=== PATIENT | male | born 1965 | race Two or more races ===

== ENCOUNTER 2023-04-26 10:16 | Emergency (ER) | payer OTHER ==
[~2023-04-26] VITALS: Ht 177.8 cm; Wt 80.0 kg
[2023-04-26] MEDS ORDERED: LORazepam 2MG/ML-1ML VIAL IV ONE (11:00)
[2023-04-26] MEDS ORDERED: ACETAMINOPHEN 325 MG TAB PO ONE ×2 (11:00)
[2023-04-26] MEDS ORDERED: IPRATROPIUM BROM 0.5 MG/2.5ML INH SOL HHN ONE (11:00)
[2023-04-26] MEDS ORDERED: ALBUTEROL SULF 2.5 MG/0.5ML(0.5%) NEB SOLN HHN ONE (11:00)
[2023-04-26] MEDS ORDERED: ASPirin 81 mg TAB PO ONE (11:00)
[2023-04-26] MEDS ORDERED: SODIUM CHLORIDE 0.9% 1,000 ML IVB ONE (11:00)
[2023-04-26] MEDS ORDERED: ONDANSETRON HCL 4 MG/2 ML VIAL IV ONE (11:00)
[2023-04-26] MEDS ORDERED: methylPREDNISolone SOD SUCC 125 MG in SODIUM CHL 0.9% 100 ML IV ONE (11:00)
[2023-04-26 11:21] LABS: Basophils # (auto) 0 10 ^3/uL (0-0.2); Basophils % (auto) 0.5 % (0.0-2.0); Eosinophils # (auto) 0 10 ^3/uL (0-0.8); Eosinophils % (auto) 0.3 % (0.0-7.0); Hematocrit 47.8 % (41.0-53.0); Hemoglobin 15.8 g/dL (13.5-17.5); Lymphocytes # (auto) 1.4 10 ^3/uL (0.4-5.4); Lymphocytes % (auto) 14.6 % (10.0-50.0); Mean Corpuscular Hemoglobin 31.7 pg (28.0-32.0); Monocytes # (auto) 0.6 10 ^3/uL (0-1.3); Monocytes % (auto) 6.2 % (0.0-12.0); Neutrophils # (auto) 7.5 10 ^3/uL (1.6-8.6); Neutrophils % (auto) 78.4 % (37.0-80.0); Nucleated Red Blood Cells % 0.1 %; Red Blood Cells 4.98 10^6/uL (4.5-5.90); Red Cell Distribution Width 14.6 % (11.8-14.3); White Blood Cell 9.6 10^3/uL (4.4-10.8)
[2023-04-26 11:29] LABS: INR 1.09 (0.9-1.15); Prothrombin Time 11.4 sec (9.3-11.8)
[2023-04-26 11:35] LABS: Alanine Aminotransferase 81 U/L (7-40); Albumin 4.3 g/dL (3.2-4.8); Alkaline Phosphatase 75 U/L (46-116); Aspartate Aminotransferase 67 U/L (13-40); BUN/Creatinine Ratio 14.5 (10.0-20.0); Bilirubin, Total 1.6 mg/dL (0.2-1.0); Blood Urea Nitrogen 20 mg/dL (9-23); Calcium 9.7 mg/dL (8.5-10.1); Chloride 104 mmol/L (98-107); Glucose 131 mg/dL (74-106); Magnesium 1.6 mg/dL (1.6-2.6); Potassium 3.3 mmol/L (3.5-5.1); Sodium 138 mmol/L (136-145); Total Protein 8.1 g/dL (5.7-8.2)
[2023-04-26 11:50] VITALS: PULSE 107; RESP 17; TEMP 98.4; O2SAT 99
[2023-04-26] MEDS ORDERED: POTASSIUM CHL 20 Meq TABLET PO ONE (15:00)
[2023-04-26 15:24] VITALS: BP 154/87; PULSE 87; RESP 17; O2SAT 96
== END 2023-04-26 15:30 | disposition home or self-care (01) ==
LOC: ER 10:16 → EDBD 10:16 → ER 15:23
DX: R06.00 Dyspnea, unspecified (principal); R45.1 Restlessness and agitation; R41.82 Altered mental status, unspecified; I10 Essential (primary) hypertension; E11.9 Type 2 diabetes mellitus without complications; Z79.01 Long term (current) use of anticoagulants; Z79.899 Other long term (current) drug therapy
CPT/HCPCS: 36415; 36600; 71045; 80053; 80320; 82805; 83605; 83735; 83880; 84443; 84484; 85025; 85610; 85730; 93005; 94640; 96365; 96375; 99285; J2060; J2405; J2930; J7644

== ENCOUNTER 2024-06-01 10:40 | Inpatient (IN) | payer OTHER ==
[~2024-06-01] VITALS: Ht 172.7 cm; Wt 95.5 kg
[2024-06-01 11:25] LABS: Basophils # (auto) 0.1 10 ^3/uL (0-0.2); Basophils % (auto) 0.9 % (0.0-2.0); Eosinophils # (auto) 0.2 10 ^3/uL (0-0.8); Eosinophils % (auto) 1.6 % (0.0-7.0); Hematocrit 49.4 % (41.0-53.0); Lymphocytes # (auto) 2.7 10 ^3/uL (0.4-5.4); Lymphocytes % (auto) 26.8 % (10.0-50.0); Mean Corpuscular Hemoglobin 32.5 pg (28.0-32.0); Mean Corpuscular Hgb Conc. 34.4 g/dL (32.0-36.0); Mean Corpuscular Volume 94.6 fL (80.0-100.0); Monocytes # (auto) 0.8 10 ^3/uL (0-1.3); Monocytes % (auto) 7.5 % (0.0-12.0); Neutrophils # (auto) 6.3 10 ^3/uL (1.6-8.6); Neutrophils % (auto) 63.2 % (37.0-80.0); Nucleated Red Blood Cells % 0.2 %; Platelet Count (auto) 237 10^3/uL (140-450); Red Blood Cells 5.22 10^6/uL (4.5-5.90); Red Cell Distribution Width 14.7 % (11.8-14.3)
[2024-06-01 11:38] LABS: Anion Gap 8 (5-15); Carbon Dioxide 25 mmol/L (20-31); Chloride 106 mmol/L (98-107); Potassium 3.6 mmol/L (3.5-5.1); Sodium 139 mmol/L (136-145)
[2024-06-01 11:39] LABS: Calcium 9.7 mg/dL (8.7-10.4)
[2024-06-01 11:43] LABS: Glucose 106 mg/dL (74-106)
[2024-06-01] MEDS: SODIUM CHLORIDE 0.9% 1,000 ML IV ONE (11:43)
[2024-06-01 11:44] LABS: BUN/Creatinine Ratio 15.9 (10.0-20.0); Blood Urea Nitrogen 29 mg/dL (9-23)
[2024-06-01 11:50] VITALS: PULSE 101; RESP 16; O2SAT 94
[2024-06-01] MEDS ORDERED: HYDROcodone-ACET 5/325MG TAB PO PRN (13:30)
[2024-06-01] MEDS ORDERED: DEXTROSE (50%) 50ML SYRG IV PRN (13:30)
[2024-06-01] MEDS ORDERED: MORPHINE SULFATE INJ 2 MG/ml SYRG IV PRN (13:30)
[2024-06-01] MEDS ORDERED: ACETAMINOPHEN 325 MG TAB PO PRN (13:30)
[2024-06-01] MEDS ORDERED: NITROGLYCERIN 0.4 MG SL TAB SL PRN (13:30)
[2024-06-01] MEDS ORDERED: DOCUSATE SOD 100 MG CAP PO PRN (13:30)
[2024-06-01] MEDS ORDERED: ONDANSETRON HCL 4 MG/2 ML VIAL IV PRN (13:30)
[2024-06-01] MEDS: SODIUM CHLORIDE 0.9% 1,000 ML IV SCH (15:12)
[2024-06-01] MEDS: InsuLIN REG 1unit/0.01ml Soln (100units/ml) SC SCH ×2 (17:00→22:00)
[2024-06-01] MEDS: ACCU-CHEK COMFORT CURVE STRIP VI SCH (17:07)
[2024-06-01 18:00] VITALS: BP 164/110; PULSE 80; RESP 16; O2SAT 95
[2024-06-01] MEDS ORDERED: ATOR40TA52 PO (19:53)
[2024-06-01] MEDS ORDERED: INSU100S6 SC (19:53)
[2024-06-01] MEDS ORDERED: METF-370 PO (19:53)
[2024-06-01] MEDS ORDERED: INSU100I28 IJ (19:53)
[2024-06-01] MEDS ORDERED: LOSA-534 PO (19:53)
[2024-06-01 20:00] VITALS: RESP 18; O2SAT 96
[2024-06-01 21:00] VITALS: BP 153/99; PULSE 97; RESP 21; TEMP 98.7; O2SAT 100
[2024-06-01] MEDS: INSULIN LANTUS (GLARGINE) 1 /0.01ml (100units/ml) SC SCH (22:05)
[2024-06-02 01:00] VITALS: BP 139/89; PULSE 82; RESP 20; TEMP 98.9; O2SAT 97
[2024-06-02 05:00] VITALS: BP 138/92; PULSE 81; RESP 19; TEMP 97.9; O2SAT 100
[2024-06-02 08:10] VITALS: RESP 18; O2SAT 96
[2024-06-02 09:00] VITALS: BP 147/99; PULSE 63; RESP 18; TEMP 98; O2SAT 98
[2024-06-02 12:53] LABS: Urine Bacteria None Seen /hpf (None Seen)
[2024-06-02 13:00] VITALS: BP 140/92; PULSE 62; RESP 18; TEMP 97.6; O2SAT 92
[2024-06-02 13:18] LABS: Urine Blood Negative /uL (Negative); Urine Clarity Clear (Clear); Urine Color Yellow (Yellow); Urine Protein, UAD 2+ (Negative); Urine Specific Gravity 1.022 (1.001-1.035); Urine Urobilinogen Normal (Negative); Urine WBC 1 /hpf (0 - 3); Urine pH 5.5 (5.0-9.0)
== END 2024-06-02 18:25 | disposition home or self-care (01) | DRG 422 ==
LOC: ER 10:40 → OVERFLOW 13:20 → CENTRAL 17:45
PROVIDERS: ADMIT Nurse Practitioner; ATTEND Nurse Practitioner
DX: E86.0 Dehydration (principal); N17.0 Acute kidney failure with tubular necrosis; I50.9 Heart failure, unspecified; I11.0 Hypertensive heart disease with heart failure; E11.65 Type 2 diabetes mellitus with hyperglycemia; E66.9 Obesity, unspecified; E78.5 Hyperlipidemia, unspecified; F32.A Depression, unspecified; Z86.73 Personal history of transient ischemic attack (TIA), and cerebral infarction without residual deficits; Z68.32 Body mass index [BMI] 32.0-32.9, adult; Z79.4 Long term (current) use of insulin
CPT/HCPCS: 36415; 74176; 80048; 81001; 82010; 82962; 83036; 85025; 87340; 93005; 96360; G0378; J1815

== ENCOUNTER 2024-09-24 12:26 | Emergency (ER) | payer OTHER ==
[~2024-09-24] VITALS: Ht 172.7 cm; Wt 109.0 kg
[~2024-09-24 12:26] MED LIST: ATOR40TA52 PO; INSU100I28 IJ; INSU100S6 SC; LOSA-534 PO; METF-370 PO
--- NOTE | 2024-09-24 13:40 | ED.PDOC ---
Gutierrez. trauma (HPI) HPI Comments A 59 YEAR OLD MALE PRESENTS TO THE ED WITH COMPLAINT OF UPPER CHEST WALL PAIN, RIGHT KNEE PAIN, AND SORE THROAT STATUS POST FALL. PATIENT STATES HE HAS A HISTORY OF A CVA IN THE PAST AND NOTES THAT THIS SOMETIMES CAUSES HIM TO BE OFF BALANCE, AND NOTES WHILE HE WAS WALKING TODAY HE LOST BALANCE AND ACCIDENTALLY FELL FORWARD ON ROCKS. PATIENT REPORTS HE HIT HIS THROAT REGION, RIGHT KNEE, AND UPPER CHEST ON THE GROUND. PATIENT STATES HE IS NOW EXPERIENCING RIGHT KNEE PAIN, AND UPPER CHEST WALL PAIN, AND STATES HE INITIALLY HAD A SORE THROAT, BUT DOES NOT AT THIS TIME. PATIENT DENIES HEAD INJURY, LOC, FEVER, CHILLS, SHORTNESS OF BREATH, ABDOMINAL PAIN, NAUSEA, VOMITING, HEADACHE, OR OTHER COMPLAINTS. NO OTHER SYMPTOMS OR MODIFYING FACTORS AT THIS TIME. PATIENT IS ALERT, ORIENTED X 4, AND HAS STEADY GAIT. Chief Complaint: Fall Injury Time Seen by MD: 12:31 Reviewed notes: Nurses Notes, Medications, Allergies Allergies: Coded Allergies: NO KNOWN ALLERGIES (Unverified , 04/26/23) Home Meds Active Scripts Cephalexin Monohydrate (Cephalexin) 500 Mg Cap, 1 CAP PO QID, #40 CAP Prov:VANCE KAMINSKI 09/24/24 Reported Medications Insulin Glargine (Insulin Glargine) 100 Unit/Ml Alee, 22 UNIT SC DAILY, ML 06/01/24 Insulin Aspart (Novolog) 100 Unit/Ml Inj, 100 UNIT IJ, INJ 06/01/24 Losartan Potassium (Losartan Potassium) 50 Mg Tab, 50 MG PO DAILY for 30 Days, MG 06/01/24 Atorvastatin Calcium (ATORVASTATIN CALCIUM) 40 Mg Tab, 1 TAB PO DAILY, #30 TAB 5 Refills 06/01/24 Metformin Hydrochloride (Metformin Hcl) 500 Mg Tab, 500 MG PO IBID for 30 Days, MG 06/01/24 Information Source: Patient Mode of Arrival: Ambulatory Severity: Moderate Timing: Hours Duration: Since onset, Hours Prehospital treatment: None Location: Chest, (R) Knee, Neck Location of laceration: None Mechanism: Fall Associated signs and symtoms: None Past Medical History PAST MEDICAL HISTORY: CHF, CVA, DM, High Lipids, HTN Past Medical History (Other): BPH, UMBILICAL HERNIA Surgical History: Tonsillectomy Family History Family History: Reviewed,noncontributory to illness, Family hx of heart reji Social History Smoker: Non-Smoker Alcohol: Denies ETOH Use Drugs: Denies Drug Use Lives In: Home Constitutional: denies: chills, diaphoresis, fatigue, fever, malaise, sweats, weakness, others EENTM: reports: throat pain; denies: blurred vision, double vision, ear bleeding, ear discharge, ear drainage, ear pain, ear ringing, eye pain, eye redness, hearing loss, mouth pain, mouth swelling, nasal discharge, nose bleeding, nose congestion, nose pain, photophobia, tearing, throat swelling, voice changes, others Respiratory: denies: cough, hemoptysis, orthopnea, SOB at rest, shortness of breath, SOB with excertion, stridor, wheezing, others Cardiovascular: denies: chest pain, dizzy spells, diaphoresis, Dyspnea on exertion, edema, irregular heart beat, left arm pain, lightheadedness, palpitations, PND, syncope, others Gastrointestinal: denies: abdomen distended, abdominal pain, blood streaked bowels, constipated, diarrhea, dysphagia, difficulty swallowing, hematemesis, melena, nausea, poor appetite, poor fluid intake, rectal bleeding, rectal pain, vomiting, others Genitourinary: denies: burning, dysuria, flank pain, frequency, hematuria, incontinence, penile discharge, penile sore, pain, testicle pain, testicle swelling, urgency, others Neurological: denies: dizziness, fainting, headache, left sided numbness, left sided weakness, numbness, paresthesia, pre-existing deficit, right sided numbness, right sided weakness, seizure, speech problems, tingling, tremors, weakness, others Musculoskeletal: reports: joint pain, joint swelling, others (UPPER CHEST WALL PAIN, RIGHT KNEE PAIN); denies: back pain, gout, muscle pain, muscle stiffness, neck pain Integumetry: reports: rash (ABRASION ON CHEST WALL. ); denies: bruises, change in color, change in hair/nails, dryness, laceration, lesions, lumps, wounds, others Allergic/Immunocompromised: denies: Difficulty Healing, Frequent Infections, Hives, Itching, others Hematologic/Lymphatic: denies: anemia, blood clots, easy bleeding, easy bruising, swollen glands, others Endocrine: denies: excessive hunger, excessive sweating, excessive thirst, excessive urination, flushing, intolerance to cold, intolerance to heat, unexpl ained weight gain, unexplained weight loss, others Psychiatric: denies: anxiety, bipolar disorder, depression, hopeless, panic disorder, schizophrenia, sleepless, suicidal, others All Other Systems: Reviewed and Negative Physical Exam General Appearance: Obese HEENT: Normal ENT Inspection, PERRL/EOMI, Pharynx Normal, TMs Normal Neck: Full Range of Motion, Non-Tender, Normal, Normal Inspection, Other (NO ANTERIOR NECK WALL CONTUSION AND OPEN WOUND. ) Respiratory: Lungs Clear, No Accessory Muscle Use, No Respiratory Distress, Normal Breath Sounds, Other (TENDERNESS WITH ABRASION ON CHEST WALL, NO BONY TENDERNESS, SWELLING AND DEFORMITY. ) Cardiovascular: No Edema, No JVD, No Murmur, No Gallop, Normal Peripheral Pulses, Regular Rate/Rhythm Breast Exam: Deferred Gastrointestinal: No Organomegaly, Non Tender, No Pulsatile Mass, Normal Bowel Sounds, Soft Genitalia: Deferred Pelvic: Deferred Rectal: Deferred Extremities: Decreased range of motion (SLIGHTLY. ), No calf tenderness, Normal capillary refill, No pedal edema, Tender (AND MILD SWELLING ON RIGHT KNEE, MILD EFFUSION, NO BONY TENDERNESS AND DEFORMITY. ) Musculoskeletal : Apperance: Normal Neurologic: Alert, acid tank cleaner II-XII nml as Tested, No Motor Deficits, Normal Affect, Normal Mood, No Sensory Deficits Cerebellar Function: Normal Reflexes: Normal Skin: Dry, Rash (ABRASION WOUNDS ON ANTERIOR CHEST WALL, NO BLEEDING AND FB. ), Warm Peripheral Pulses: 2+ carotid (R), 2+ carotid (L), 2+ dorsalis pedis (R), 2+ dorsalis pedis (L) Lymphatic: No Adenopathy Was a procedure done? Was a procedure done?: No Differential Diagnosis Multiple Trauma: Fractures, Abrasions, Contusion, Other (SPRAIN) Neck Injury: Cervical Muscle Spasm, N/A X-Ray, Labs, Meds, VS Vital Signs Date Time Temp Pulse Resp B/P (MAP) Pulse Ox O2 Delivery O2 Flow Rate FiO2 09/24/24 14:04 107 20 97 Room Air 09/24/24 14:04 99.9 107 20 151/81 (104) 97 99.9 09/24/24 13:18 99.9 107 20 151/81 (104) 97 CLINICAL INDICATION: Trauma TECHNIQUE: 3 radiographic views of the right knee were obtained. Comparison: None FINDINGS/IMPRESSION: There is no evidence of acute fracture or dislocation. Severe tricompartmental knee joint osteoarthrosis. ATED BY: RBY COLBERT MD DICTATED DATE/TIME: 09/24/241411 SIGNED BY: BRY COLBERT MD SIGNED DATE/TIME: 09/24/241411 CC: EXAM: XY CHEST TWO VIEWS ROUTINE CLINICAL HISTORY: Trauma COMPARISON: None TECHNIQUE: Frontal and lateral view of the chest was obtained FINDINGS: Lines and Tubes: None Lungs: No focal consolidation. Pleura: No effusion. No pneumothorax. Cardiomediastinal contours: Unremarkable Bones: No acute osseous abnormality. IMPRESSION: No acute cardiopulmonary disease. ATED BY: BRY COLBERT MD DICTATED DATE/TIME: 09/24/241411 SIGNED BY: BRY COLBERT MD SIGNED DATE/TIME: 09/24/241411 CC: X-Ray, Labs, Meds, VS Comment EXTERNAL MEDICAL RECORDS REVIEWED: [NONE] INDEPENDENT HISTORIANS: [NONE] SOCIAL DETERMINANTS OF HEALTH: [NONE] LABS ORDERED: NONE REVIEWED AND INTERPRETED RESULTS: NONE IMAGING ORDERED: XR CHEST, XR KNEE RT TREATMENTS ORDERED: PROCEDURES PERFORMED: NONE CRITICAL CARE TIME: NONE I HAVE DISCUSSED THE PATIENT WITH THE ATTENDING PHYSICIAN DR. NOEL AND HE AGREES WITH THE PATIENT'S PLAN OF CARE AND DISPOSITION. BASED ON HISTORY OF PRESENT ILLNESS, AND PHYSICAL EXAM, PATIENT WILL BE DISCHARGED HOME. SHARED DECISION MAKING: PATIENT INSTRUCTED TO FOLLOW UP WITH PRIMARY CARE PROVIDER IN 1-2 DAYS FOR RE-EVALUATION OF SYMPTOMS. PATIENT VERBALIZES UNDERST ANDING TO RETURN TO ED FOR NEW OR WORSENING SYMPTOMS OR IF FOLLOW UP WITH PCP CANNOT BE OBTAINED. PATIENT FEELS COMFORTABLE GOING HOME AT THIS TIME. ALL QUESTIONS ADDRESSED AT TIME OF DISCHARGE. Images Reviewed?: Images reviewed and evaluated by me Time of 1ST Reevaluation: 15:00 Reevaluation 1ST: Improved Patient Education/Counseling: Diagnosis, Treatment, Need For Follow Up Family Education/Counseling: Diagnosis, Treatment, Need For Follow Up Medical Screening: No EMC Exist At This Time Departure 1 Departure Time of Disposition: 15:00 Impression: Primary Impression: Abrasion of chest wall Qualified Codes: S20.319A - Abrasion of unspecified front wall of thorax, initial encounter Additional Impressions: Abrasion of right knee Qualified Codes: S80.211A - Abrasion, right knee, initial encounter Status post fall Degenerative joint disease of right knee Qualified Codes: M17.11 - Unilateral primary osteoarthritis, right knee Disposition: HOME / SELF CARE / HOMELESS Condition: Stable Additional Instructions: FOLLOW-UP WITH PCP IN 1 TO 2 DAYS. TAKE MEDICATIONS PRESCRIBED. RETURN TO ED FOR ANY NEW OR WORSENING SYMPTOMS. e-Prescriptions Cephalexin Monohydrate (Cephalexin) 500 Mg Cap 1 CAP PO QID, #40 CAP Prov: VANCE KAMINSKI 09/24/24 Discharged With: Self, Relative Critical Care Note Critical Care Time?: No Stability Stability form required: No I personally scribed for VANCE KAMINSKI ([email or web address]) on 09/24/24 at 13:40. Electronically submitted by Clinton Gracia ([email or web address]). I personally scribed for VANCE KAMINSKI ([email or web address]) on 09/24/24 at 14:12. Electronically submitted by Clinton Gracia ([employer]). I personally scribed for VANCE KAMINSKI ([email or web address]) on 09/24/24 at 14:14. Electronically submitted by Clinton Gracia ([employer]). I personally scribed for VANCE KAMINSKI ([email or web address]) on 09/24/24 at 14:15. Electronically submitted by Clinton Gracia ([employer]). VANCE KAMINSKI Sep 24, 2024 13:40
[2024-09-24 14:04] VITALS: BP 151/81; PULSE 107; RESP 20; TEMP 99.9; O2SAT 97
--- NOTE | 2024-09-24 14:12 | DVH ---
CLINICAL INDICATION: Trauma TECHNIQUE: 3 radiographic views of the right knee were obtained. Comparison: None FINDINGS/IMPRESSION: There is no evidence of acute fracture or dislocation. Severe tricompartmental knee joint osteoarthrosis.
--- NOTE | 2024-09-24 14:13 | DVH ---
EXAM: XY CHEST TWO VIEWS ROUTINE CLINICAL HISTORY: Trauma COMPARISON: None TECHNIQUE: Frontal and lateral view of the chest was obtained FINDINGS: Lines and Tubes: None Lungs: No focal consolidation. Pleura: No effusion. No pneumothorax. Cardiomediastinal contours: Unremarkable Bones: No acute osseous abnormality. IMPRESSION: No acute cardiopulmonary disease.
[2024-09-24] MEDS ORDERED: CEPH500C PO (14:30)
== END 2024-09-24 14:43 | disposition home or self-care (01) ==
LOC: ER 12:26
DX: S20.319A Abrasion of unspecified front wall of thorax, initial encounter (principal); S80.211A Abrasion, right knee, initial encounter; M17.11 Unilateral primary osteoarthritis, right knee; I11.0 Hypertensive heart disease with heart failure; I50.9 Heart failure, unspecified; E11.9 Type 2 diabetes mellitus without complications; E78.5 Hyperlipidemia, unspecified; Z86.73 Personal history of transient ischemic attack (TIA), and cerebral infarction without residual deficits; Z90.89 Acquired absence of other organs; Z79.4 Long term (current) use of insulin; Z79.899 Other long term (current) drug therapy; W18.39XA Other fall on same level, initial encounter; Y93.89 Activity, other specified; Y92.89 Other specified places as the place of occurrence of the external cause; Y99.8 Other external cause status
CPT/HCPCS: 71046; 73562

== ENCOUNTER 2025-04-19 17:24 | Inpatient (IN) | payer OTHER ==
[~2025-04-19] VITALS: Ht 172.7 cm; Wt 94.4 kg
[2025-04-19] MEDS: SODIUM CHLORIDE 0.9% 1,000 ML IV SCH (03:00)
[~2025-04-19 17:24] MED LIST changes: +ASPI-325 PO; +ATOR20TA50 PO; +CEPH500C PO; +CLOP75TA70 PO; +FURO20TA4 PO; +INSU1INJ19 SC; +TAMS0.4C39 PO
[2025-04-19] MEDS ORDERED: MORPHINE SULFATE 4 MG/ML SYR/VIAL IV ONE (17:45)
[2025-04-19] MEDS ORDERED: ONDANSETRON HCL 4 MG/2 ML VIAL IV ONE (17:45)
--- NOTE | 2025-04-19 17:52 | ED.PDOC ---
History of Present Illness HPI Comments 60-year-old male who comes in with chief complaint of abdominal pain. The patient is also having some nausea. The patient states that the symptoms started approximately two days ago. He states that he is currently on Ozempic for the past two months and recently has a dose increased. The pain is in the epigastric region and nonradiating. The patient denies any fever or dysuria. The patient does has a history of diabetes. Time Seen by MD: 17:29 Reviewed Notes: Nurses Notes, Mechanical Assembly Technician Notes, Medications, Allergies (No allergies to medications) Allergies: Coded Allergies: NO KNOWN ALLERGIES (Unverified , 04/26/23) Home Meds Active Scripts Cephalexin Monohydrate (Cephalexin) 500 Mg Cap, 1 CAP PO QID, #40 CAP Prov:VANCE KAMINSKI 09/24/24 Reported Medications Insulin Glargine (Insulin Glargine) 100 Unit/Ml Alee, 22 UNIT SC DAILY, ML 06/01/24 Insulin Aspart (Novolog) 100 Unit/Ml Inj, 100 UNIT IJ, INJ 06/01/24 Losartan Potassium (Losartan Potassium) 50 Mg Tab, 50 MG PO DAILY for 30 Days, MG 06/01/24 Atorvastatin Calcium (ATORVASTATIN CALCIUM) 40 Mg Tab, 1 TAB PO DAILY, #30 TAB 5 Refills 06/01/24 Metformin Hydrochloride (Metformin Hcl) 500 Mg Tab, 500 MG PO IBID for 30 Days, MG 06/01/24 Information Source: Patient, Emergency Med Personnel Mode of Arrival: EMS Severity: Moderate Timing: Days Duration: Since onset Prehospital treatment: Vibrating Screen Operator, IVF Location: Epigastric pain Past Medical History PAST MEDICAL HISTORY: CHF, CVA, DM, High Lipids, HTN Surgical History: Tonsillectomy Family History Family History: Family hx of heart reji Social History Smoker: Non-Smoker Alcohol: Denies ETOH Use Drugs: Denies Drug Use Lives In: Home Constitutional: denies: chills, diaphoresis, fatigue, fever, malaise, sweats, weakness, others EENTM: denies: blurred vision, double vision, ear bleeding, ear discharge, ear drainage, ear pain, ear ringing, eye pain, eye redness, hearing loss, mouth pain, mouth swelling, nasal discharge, nose bleeding, nose congestion, nose pain, photophobia, tearing, throat pain, throat swelling, voice changes, others Respiratory: denies: cough, hemoptysis, orthopnea, SOB at rest, shortness of breath, SOB with excertion, stridor, wheezing, others Cardiovascular: denies: chest pain, dizzy spells, diaphoresis, Dyspnea on exertion, edema, irregular heart beat, left arm pain, lightheadedness, palpitations, PND, syncope, others Gastrointestinal: reports: abdominal pain, nausea; denies: abdomen distended, blood streaked bowels, constipated, diarrhea, dysphagia, difficulty swallowing, hematemesis, melena, poor appetite, poor fluid intake, rectal bleeding, rectal pain, vomiting, others Genitourinary: denies: burning, dysuria, flank pain, frequency, hematuria, incontinence, penile discharge, penile sore, pain, testicle pain, testicle swelling, urgency, others Neurological: denies: dizziness, fainting, headache, left sided numbness, left sided weakness, numbness, paresthesia, pre-existing deficit, right sided numbness, right sided weakness, seizure, speech problems, tingling, tremors, weakness, others Musculoskeletal: denies: back pain, gout, joint pain, joint swelling, muscle p ain, muscle stiffness, neck pain, others Integumetry: denies: bruises, change in color, change in hair/nails, dryness, laceration, lesions, lumps, rash, wounds, others Allergic/Immunocompromised: denies: Difficulty Healing, Frequent Infections, Hives, Itching, others Hematologic/Lymphatic: denies: anemia, blood clots, easy bleeding, easy bruising, swollen glands, others Endocrine: denies: excessive hunger, excessive sweating, excessive thirst, excessive urination, flushing, intolerance to cold, intolerance to heat, unexplained weight gain, unexplained weight loss, others Psychiatric: denies: anxiety, bipolar disorder, depression, hopeless, panic disorder, schizophrenia, sleepless, suicidal, others Physical Exam General Appearance: Moderate Distress HEENT: Normal ENT Inspection, Pharynx Normal, TMs Normal Neck: Full Range of Motion, Non-Tender, Normal, Normal Inspection Respiratory: Chest Non-Tender, Lungs Clear, No Accessory Muscle Use, No Respiratory Distress, Normal Breath Sounds Cardiovascular: No Edema, No JVD, No Murmur, No Gallop, Normal Peripheral Pulses, Regular Rate/Rhythm Breast Exam: Deferred Gastrointestinal: Epigastric, No Organomegaly, No Pulsatile Mass, Normal Bowel Sounds, Soft, Tenderness Genitalia: Deferred Pelvic: Deferred Rectal: Deferred Extremities: No calf tenderness, Normal capillary refill, Normal inspection, Normal range of motion, Non-tender, No pedal edema Musculoskeletal : Apperance: Normal Neurologic: Alert, software performance engineer II-XII nml as Tested, No Motor Deficits, Normal Affect, Normal Mood, No Sensory Deficits Cerebellar Function: Normal Reflexes: Normal Skin: Dry, Normal Color, Warm Lymphatic: No Adenopathy Was a procedure done? Was a procedure done?: No EKG EKG : Pulse Rate (adult): 102 [place]: Normal Cardiac Rhythm: ST Block: None ST: Nonsp Differential Dx Considerations may include: Generalized weakness, electrolyte imbalance, nausea, vomiting, cholecystitis, appendicitis X-Ray, Labs, Meds, VS Vital Signs Date Time Temp Pulse Resp B/P (MAP) Pulse Ox O2 Delivery O2 Flow Rate FiO2 04/19/25 19:53 108 12 92 Room Air* 0 21 04/19/25 19:51 97.4 108 18 101/67 (78) 92 97.4 04/19/25 17:52 102 04/19/25 17:35 97.6 100 18 125/86 97 97.6 Lab Test 04/19/25 18:07 Range/Units White Blood Count 9.6 4.4-10.8 10^3/uL Red Blood Count 4.97 4.5-5.90 10^6/uL Hemoglobin 15.6 13.5-17.5 g/dL Hematocrit 45.4 41.0-53.0 % Mean Corpuscular Volume 91.4 80.0-100.0 fL Mean Corpuscular Hemoglobin 31.5 28.0-32.0 pg Mean Corpuscular Hemoglobin Concent 34.4 32.0-36.0 g/dL Red Cell Distribution Width 14.0 11.8-14.3 % Platelet Count 202 140-450 10^3/uL Mean Platelet Volume 9.2 6.9-10.8 fL Neutrophils (%) (Auto) 61.7 37.0-80.0 % Lymphocytes (%) (Auto) 29.0 10.0-50.0 % Monocytes (%) (Auto) 7.4 0.0-12.0 % Eosinophils (%) (Auto) 1.4 0.0-7.0 % Basophils (%) (Auto) 0.5 0.0-2.0 % Neutrophils # (Auto) 5.9 1.6-8.6 10 ^3/uL Lymphocytes # (Auto) 2.8 0.4-5.4 10 ^3/uL Monocytes # (Auto) 0.7 0-1.3 10 ^3/uL Eosinophils # (Auto) 0.1 0-0.8 10 ^3/uL Basophils # (Auto) 0.1 0-0.2 10 ^3/uL Nucleated Red Blood Cells 0.2 % Sodium Level 140 136-145 mmol/L Potassium Level 4.0 3.5-5.1 mmol/L Chloride Level 105 98-107 mmol/L Carbon Dioxide Level 23 20-31 mmol/L Anion Gap 12 5-15 Blood Urea Nitrogen 28 H 9-23 mg/dL Creatinine 3.88 H 0.700-1.30 mg/dL Glomerular Filtration Rate Calc 17 >90 mL/min BUN/Creatinine Ratio 7.2 L 10.0-20.0 Serum Glucose 101 74-106 mg/dL Calcium Level 8.9 8.7-10.4 mg/dL Lipase 69 H 12-53 U/L Current Medications Medications (Trade) Dose Ordered Sig/Stefan Route Start Time Stop Time Status Last Admin Sodium Chloride 500 ml @ 500 mls/hr Q1H ONCE IVB 04/19/25 17:45 04/19/25 18:44 DC 04/19/25 20:07 Pantoprazole Sodium (Protonix) 40 mg ONCE ONCE IV 04/19/25 17:45 04/19/25 17:46 DC 04/19/25 20:08 IV Hep-Lock was established The ultrasound of the pelvis shows: IMPRESSION: Hepatomegaly. The liver is diffusely echogenic which may be secondary to steatosis or another diffuse hepatic process. Correlate clinically and with liver function tests. The patient was given Protonix 40 mg IV push The patient was bolused with normal saline at 500 cc The BUN is 28 and a creatinine is 3.88 The patient's CBC is within normal limits. At this time, the patient is being admitted. There is a concern that the patient's lipase is somewhat elevated and this could be consistent with a possibility of pancreatitis Images Reviewed?: Images reviewed and evaluated by me Time of 1ST Reevaluation: 17:51 Reevaluation 1ST: Unchanged Patient Education/Counseling: Diagnosis, Treatment, Prognosis Family Education/Counseling: No Family Present SEPSIS Sepsis Screen Physician Orders Urinalysis (04/19/25 17:35) Heplock Iv (04/19/25 17:35) Vibrating Screen Operator (04/19/25 17:35) Blood Pressure (04/19/25 17:35) Pulse Oximetry (04/19/25 17:35) Abdomen Complete Sonogram (04/19/25 17:35) Vital Signs Date Time Temp Pulse Resp B/P (MAP) Pulse Ox O2 Delivery O2 Flow Rate FiO2 04/19/25 19:53 108 12 92 Room Air* 0 21 04/19/25 19:51 97.4 108 18 101/67 (78) 92 97.4 04/19/25 17:52 102 04/19/25 17:35 97.6 100 18 125/86 97 97.6 Laboratory Tests Test 04/19/25 18:07 White Blood Count 9.6 10^3/uL (4.4-10.8) Medications Medications Dose Ordered Sig/Stefan Route Start Time Stop Time Status Last Admin Dose Admin Pantoprazole Sodium 40 mg ONCE ONCE IV 04/19/25 17:45 04/19/25 17:46 DC 04/19/25 20:08 Sodium Chloride 500 ml @ 500 mls/hr Q1H ONCE IVB 04/19/25 17:45 04/19/25 18:44 DC 04/19/25 20:07 Departure 1 Departure Time of Disposition: 20:21 Impression: Primary Impression: Intractable abdominal pain Additional Impression: Acute pancreatitis Qualified Codes: K85.90 - Acute pancreatitis without necrosis or infection, unspecified Disposition: 09 ADMITTED INPATIENT Admit to: Med Surg Condition: Fair Critical Care Note Critical Care Time?: No Stability Stability form required: Yes Unstable for transfer: ED Physician Assesment (Clinical assesment) Heart Score Heart Score: Heart Score Response (Comments) Value History N/A 0 EKG N/A 0 Age N/A 0 Risk Factors N/A 0 Troponin N/A 0 Total 0 IRIS NOEL MD Apr 19, 2025 17:52
--- NOTE | 2025-04-19 18:26 | DVH ---
ULTRASOUND ABDOMEN: REASON FOR EXAM: pain TECHNIQUE: Real-time sector scans in the transverse and longitudinal planes were obtained through th e abdomen. FINDINGS: The liver is enlarged at 17.9 cm in length. The liver is diffusely echogenic. There is he patopetal flow in the portal vein. There is no intrahepatic biliary ductal dilatation. The common bi le duct measures 6 mm. No gallstones or sludge are identified. There is no gallbladder wall thicken ing nor pericholecystic fluid. There is no sonographic Nickerson's sign. The spleen is normal in size. The visualized portion of the pancreas is unremarkable. The pancreas is mostly obscured by bowel gas. The right kidney measures 12.2 cm. The left kidney measures 11.7 cm. There is no hydronephrosis or nephrolithiasis. There is no evidence of focal renal mass or cyst. The visualized portions of the abdominal aorta demonstrate no evidence of aneurysmal dilatation. The visualized inferior vena cava is unremarkable. There is no free intraperitoneal fluid. IMPRESSION: Hepatomegaly. The liver is diffusely echogenic which may be secondary to steatosis or another diffuse hepatic process. Correlate clinically and with liver function tests.
[2025-04-19 18:28] LABS: Hematocrit 45.4 % (41.0-53.0); Hemoglobin 15.6 g/dL (13.5-17.5); Mean Corpuscular Hemoglobin 31.5 pg (28.0-32.0); Mean Corpuscular Volume 91.4 fL (80.0-100.0); Nucleated Red Blood Cells % 0.2 %
[2025-04-19 18:34] LABS: Chloride 105 mmol/L (98-107); Potassium 4.0 mmol/L (3.5-5.1); Sodium 140 mmol/L (136-145)
[2025-04-19 18:35] LABS: Anion Gap 12 (5-15); Carbon Dioxide 23 mmol/L (20-31)
[2025-04-19 18:36] LABS: Calcium 8.9 mg/dL (8.7-10.4)
[2025-04-19 18:40] LABS: BUN/Creatinine Ratio 7.2 (10.0-20.0); Glucose 101 mg/dL (74-106)
[2025-04-19 18:44] LABS: Blood Urea Nitrogen 28 mg/dL (9-23); Lipase 69 U/L (12-53)
[2025-04-19 19:53] VITALS: PULSE 108; RESP 12; O2SAT 92
[2025-04-19] MEDS: SODIUM CHLORIDE 0.9% 500 ML IVB ONE (20:07)
[2025-04-19] MEDS: PANTOPRAZOLE 40 MG/10 ML VIAL INJ IV ONE (20:08)
[2025-04-19] MEDS ORDERED: NITROGLYCERIN 0.4 MG SL TAB SL PRN (22:00)
[2025-04-19] MEDS ORDERED: MORPHINE SULFATE INJ 2 MG/ml SYRG IV PRN (22:00)
[2025-04-20] VITALS (9 sets, daily range): BP systolic 116–142; BP diastolic 73–95; PULSE 66–91; RESP 16–19; TEMP 97.3–98.2; O2SAT 92–97
[2025-04-20 06:41] LABS: Hematocrit 41.5 % (41.0-53.0); Hemoglobin 14.4 g/dL (13.5-17.5); Mean Corpuscular Hemoglobin 31.8 pg (28.0-32.0); Mean Corpuscular Volume 91.8 fL (80.0-100.0); Nucleated Red Blood Cells % 0.1 %
[2025-04-20 06:56] LABS: Albumin 3.8 g/dL (3.2-4.8); Alkaline Phosphatase 63 U/L (46-116); Anion Gap 10 (5-15); BUN/Creatinine Ratio 7.8 (10.0-20.0); Bilirubin, Total 1.0 mg/dL (0.2-1.0); Carbon Dioxide 23 mmol/L (20-31); Chloride 106 mmol/L (98-107); Glucose 80 mg/dL (74-106); Potassium 3.8 mmol/L (3.5-5.1); Sodium 139 mmol/L (136-145); Total Protein 7.7 g/dL (5.7-8.2)
[2025-04-20 07:08] LABS: Urine Protein, UAD 1+ (Negative)
[2025-04-20 07:08] LABS: Alanine Aminotransferase 92 U/L (7-40); Blood Urea Nitrogen 28 mg/dL (9-23); Calcium 8.4 mg/dL (8.7-10.4); Lipase 58 U/L (12-53)
--- NOTE | 2025-04-20 12:27 | DVHPN2 ---
Progress Note - Dictate Date Seen: Apr 20, 2025 Medical Necessity Reason Pt with a Central, PICC or Fol: No vital signs Vital Sign Date Time Temp Pulse Resp B/P (MAP) Pulse Ox O2 Delivery O2 Flow Rate FiO2 04/20/25 08:58 97.6 91 18 139/85 (103) 97 97.6 04/20/25 08:00 Room Air* 0 21 Total Intake and Output 04/19/25 04/19/25 04/20/25 15:00 23:00 07:00 Intake Total 0 ml Balance 0 ml medications Current Medications Medications Dose Ordered Sig/Stefan Route Start Time Stop Time Status Last Admin Dose Admin Sodium Chloride 1,000 ml @ 120 mls/hr Q8H20M IV 04/19/25 22:00 04/19/25 03:00 Morphine Sulfate 2 mg Q4HPRN PRN IV 04/19/25 22:00 Nitroglycerin 0.4 mg Q5MINP PRN SL 04/19/25 22:00 Morphine Sulfate 2 mg Q30M PRN IV 04/19/25 22:00 laboratory and microbiology Laboratory Tests 04/20/25 05:47 Test 04/20/25 05:47 Range/Units Serum Glucose 80 74-106 mg/dL Problem List 1. Intractable nausea and vomiting Monitor, IV fluids, antiemetics 2. HLD Monitor, restart statin, PPI 3. Benign essential HTN Monitor, antihypertensives, PPI, DVT prophylaxis 4. Obesity Monitor, cardiac diet Assessment/Plan Subjective Patient is awake and alert. Objective Patient was admitted for abdominal pain and nausea related to Ozempic use. Patient was cleared for discharge today however he was complaining of left shoulder pain. Plan Obtain troponin levels. Monitor on twelve-lead EKG. Obtain 2 view x-ray of left shoulder. Cardiology consult if EKG is abnormal and continue antihypertensives and PRN pain medication for abdominal pain. Patient was instructed to discontinue Ozempic. Plan discussed with: Patient, Other JAMAR VIVAR NP Apr 20, 2025 12:27
--- NOTE | 2025-04-20 12:27 | DVHHP2 ---
Admitting Diagnosis: abdominal pain History of Present Illness 60-year-old male who comes in with chief complaint of abdominal pain. The patient is also having some nausea. The patient states that the symptoms s tarted approximately two days ago. He states that he is currently on Ozempic for the past two months and recently has a dose increased. The pain is in the epigastric region and nonradiating. The patient denies any fever or dysuria. The patient does has a history of diabetes. While in the emergency department the patient was evaluated by the provider, As per provider: Labs, vital signs, and imagining monitored. Patient will be admitted for further evaluation and treatment. I discussed admission with the patient/family and is in agreement to treatment plan. Patient Family History: Cerebrovascular accident (CVA) G8 MOTHER FH: heart disease G8 FATHER Allergies: Coded Allergies: NO KNOWN ALLERGIES (Unverified , 04/26/23) Home Meds Active Scripts Cephalexin Monohydrate (Cephalexin) 500 Mg Cap, 1 CAP PO QID, #40 CAP Prov:VANCE KAMINSKI 09/24/24 Reported Medications Insulin Glargine (Insulin Glargine) 100 Unit/Ml Alee, 22 UNIT SC DAILY, ML 06/01/24 Insulin Aspart (Novolog) 100 Unit/Ml Inj, 100 UNIT IJ, INJ 06/01/24 Losartan Potassium (Losartan Potassium) 50 Mg Tab, 50 MG PO DAILY for 30 Days, MG 06/01/24 Atorvastatin Calcium (ATORVASTATIN CALCIUM) 40 Mg Tab, 1 TAB PO DAILY, #30 TAB 5 Refills 06/01/24 Metformin Hydrochloride (Metformin Hcl) 500 Mg Tab, 500 MG PO IBID for 30 Days, MG 06/01/24 Current Medications Current Medications Medications (Trade) Dose Ordered Sig/Stefan Route PRN Reason Start Time Stop Time Status Last Admin Sodium Chloride 1,000 ml @ 120 mls/hr Q8H20M IV 04/19/25 22:00 04/20/25 15:41 Morphine Sulfate 2 mg Q4HPRN PRN IV SEVERE PAIN (7-10 PAIN SCALE) 04/19/25 22:00 04/20/25 13:00 Nitroglycerin (Ntrostat Sublingual) 0.4 mg Q5MINP PRN SL FOR CHEST PAIN 04/19/25 22:00 Morphine Sulfate 2 mg Q30M PRN IV FOR CHEST PAIN 04/19/25 22:00 Losartan Potassium (Cozaar Tablet) 50 mg DAILY PO 04/21/25 10:00 Atorvastatin Calcium (Lipitor) 20 mg HS PO 04/20/25 22:00 Review of Systems Constitutional: denies chills, denies fever, denies malaise Eyes: denies eye pain, denies vision change ENT: denies ear pain, denies headache, denies nasal congestion, denies painful swallowing, denies voice change Cardiovascular: denies chest pain, denies edema, denies orthopnea, denies palpitations, denies paroxysmal nocturnal dyspnea Respiratory: denies cough, denies shortness of breath Gastrointestinal: denies constipation, denies diarrhea, denies nausea, denies vomiting Genitourinary: denies dysuria, denies frequent urination, denies urethral discharge Musculoskeletal: denies back pain, denies joint pain, denies muscle pain Skin: denies bruising, denies itching, denies rash Neurological: denies focal weakness, denies headache, denies sensory changes Psychiatric: denies anxiety, denies depression Endocrine: denies polydipsia, denies polyuria Hematologic/Lymphatic: denies easy bleeding, denies easy bruising, denies enlarged lymph nodes Allergic/Immunologic: denies allergy, denies hives Vital Signs Vital Signs Date Time Temp Pulse Resp B/P (MAP) Pulse Ox O2 Delivery O2 Flow Rate FiO2 04/20/25 16:52 97.5 73 18 138/78 (98) 96 97.5 04/20/25 08:00 Room Air* 0 21 Physical Exam General Appearance: alert, no distress HEENT: EOMI, PERRLA, normal external inspect of ears, no icterus, no nasal drai nage Neck: no carotid bruit, no jugular venous distention (JVD), no lymphadenopathy Chest: normal thorax Respiratory: clear to auscultation, normal air movement Cardiovascular: regular rate and rhythm, no diastolic murmur, no jugular venous distention (JVD), no rub, no systolic murmur Abdominal: soft, no hepatomegaly, no mass, no splenomegaly, no tenderness Genitourinary: grossly normal external Musculoskeletal: no joint tenderness, no swelling Extremities: normal pulses, no calf tenderness, no clubbing, no cyanosis, no edema Skin: no bruising, no jaundice, no rash Neurological: alert, No focal deficit SEPSIS Sepsis Screen Date sepsis recognized/suspect: Apr 19, 2025 Time Sepsis recognized/suspect: 1734 Recent Procedure: No On Antibiotic Therapy: No Respiratory Rate >20: No Heart Rate >90: Yes Temp<36 C (96.8 F) or >38.3 C: No SBP <90 or MAP <65 mmHG: No New Acute Mental Status Change: No Is the patient on CPAP, BIPAP,: No Physician Orders Heplock Iv (04/19/25 17:35) Rigging Man (04/19/25 17:35) Blood Pressure (04/19/25 17:35) Pulse Oximetry (04/19/25 17:35) Abdomen Complete Sonogram (04/19/25 17:35) Admit (04/19/25 21:50) Sodium Chloride 0.9% (04/19/25 22:00) Morphine Sulfate Injection (04/19/25 22:00) Nitroglycerin Sublingual (Ntrostat Subli (04/19/25 22:00) Morphine Sulfate Injection (04/19/25 22:00) Stat Ekg For Chest Pain (04/19/25 21:50) Notify Md Of Changes From Base (04/19/25 21:50) Deliver Driver For 24 Hours (04/19/25 21:50) Emergency Dysrhythmia Protocol (04/19/25 21:50) Rhythm Strips Once Every Shift (04/19/25 21:50) Oxygen By Nasal Cannula (04/19/25 21:50) Clear Liq Diet (04/20/25 Lunch) Advance Diet As Tolerated (04/20/25 12:25) Losartan Tablet (Cozaar Tablet) (04/21/25 10:00) L Shoulder 2+ View Xray (04/20/25 12:52) Electrocardigram (04/20/25 12:52) Drug Screen (04/20/25 12:52) * Cardiology Consult (04/20/25 13:51) Echo 2d Mode Cardiac Dop (04/20/25 13:51) Atorvastatin (Lipitor) (04/20/25 22:00) 1 View Decubitus Chest Xray (04/20/25 18:12) Basic Metabolic Panel (04/21/25 06:00) Vital Signs Date Time Temp Pulse Resp B/P (MAP) Pulse Ox O2 Delivery O2 Flow Rate FiO2 04/20/25 16:52 97.5 73 18 138/78 (98) 96 97.5 04/20/25 13:00 72 16 133/95 04/20/25 13:00 97.6 72 18 133/95 (108) 97 97.6 04/20/25 08:58 97.6 91 18 139/85 (103) 97 97.6 04/20/25 08:00 91 18 97 Room Air* 0 21 04/20/25 08:00 81 04/20/25 05:00 97.3 79 17 134/83 (100) 97 97.3 04/20/25 02:53 Room Air* 0 21 04/20/25 02:00 97.7 74 16 116/73 (87) 94 97.7 04/20/25 00:00 83 19 116/73 (87) 92 04/20/25 00:00 78 04/19/25 19:53 108 12 92 Room Air* 0 21 04/19/25 19:51 97.4 108 18 101/67 (78) 92 97.4 04/19/25 17:52 102 04/19/25 17:35 97.6 100 18 125/86 97 97.6 Laboratory Tests Test 04/19/25 18:07 04/20/25 05:47 White Blood Count 9.6 10^3/uL (4.4-10.8) 7.8 10^3/uL (4.4-10.8) Results Labs Test 04/20/25 16:30 04/20/25 13:30 04/20/25 06:26 04/20/25 05:47 Range/Units Troponin I High Sensitivity 10 </=54 ng/L Plasma/Serum Blood Alcohol 4.8 <10 mg/dL POC Glucose 83 70-106 mg/dl White Blood Count 7.8 4.4-10.8 10^3/uL Red Blood Count 4.52 4.5-5.90 10^6/uL Hemoglobin 14.4 13.5-17.5 g/dL Hematocrit 41.5 41.0-53.0 % Mean Corpuscular Volume 91.8 80.0-100.0 fL Mean Corpuscular Hemoglobin 31.8 28.0-32.0 pg Mean Corpuscular Hemoglobin Concent 34.6 32.0-36.0 g/dL Red Cell Distribution Width 13.9 11.8-14.3 % Platelet Count 171 140-450 10^3/uL Mean Platelet Volume 9.2 6.9-10.8 fL Neutrophils (%) (Auto) 54.2 37.0-80.0 % Lymphocytes (%) (Auto) 34.7 10.0-50.0 % Monocytes (%) (Auto) 8.6 0.0-12.0 % Eosinophils (%) (Auto) 2.2 0.0-7.0 % Basophils (%) (Auto) 0.3 0.0-2.0 % Neutrophils # (Auto) 4.2 1.6-8.6 10 ^3/uL Lymphocytes # (Auto) 2.7 0.4-5.4 10 ^3/uL Monocytes # (Auto) 0.7 0-1.3 10 ^3/uL Eosinophils # (Auto) 0.2 0-0.8 10 ^3/uL Basophils # (Auto) 0 0-0.2 10 ^3/uL Nucleated Red Blood Cells 0.1 % Sodium Level 139 136-145 mmol/L Potassium Level 3.8 3.5-5.1 mmol/L Chloride Level 106 98-107 mmol/L Carbon Dioxide Level 23 20-31 mmol/L Anion Gap 10 5-15 Blood Urea Nitrogen 28 H 9-23 mg/dL Creatinine 3.58 H 0.700-1.30 mg/dL Glomerular Filtration Rate Calc 19 >90 mL/min BUN/Creatinine Ratio 7.8 L 10.0-20.0 Serum Glucose 80 74-106 mg/dL Calcium Level 8.4 L 8.7-10.4 mg/dL Total Bilirubin 1.0 0.2-1.0 mg/dL Aspartate Amino Transferase (AST) 73 H 13-40 U/L Alanine Aminotransferase (ALT) 92 H 7-40 U/L Alkaline Phosphatase 63 46-116 U/L Total Protein 7.7 5.7-8.2 g/dL Albumin 3.8 3.2-4.8 g/dL Lipase 58 H 12-53 U/L Test 04/19/25 06:16 Range/Units Urine Color Yellow Yellow Urine Clarity Clear Clear Urine pH 5.5 5.0-9.0 Urine Specific [place] 1.020 1.001-1.035 Urine Protein 1+ H Negative Urine Ketones Negative Negative Urine Blood Negative Negative /uL Urine Nitrite Negative Negative Urine Bilirubin Negative Negative Urine Urobilinogen 2 H Negative mg/dL Urine Leukocyte Esterase Negative Negative /uL Urine RBC 1 0 - 3 /hpf Urine Microscopic WBC 4 H 0-3 /HPF Urine Squamous Epithelial Cells Few <5 /hpf Urine Bacteria None seen None Seen /hpf Urine Hyaline Casts Few 0 - 2 /lpf Urine Mucus Few None Seen Urine Glucose Normal Normal mg/dL Plan 1. Intractable nausea and vomiting Monitor, IV fluids, antiemetics 2. HLD Monitor, restart statin, PPI 3. Benign essential HTN Monitor, antihypertensives, PPI, DVT prophylaxis 4. Obesity Monitor, cardiac diet Plan discussed with: Patient, Other JAMAR VIVAR NP Apr 20, 2025 12:27
[2025-04-20] MEDS: MORPHINE SULFATE INJ 2 MG/ml SYRG IV PRN (13:00)
--- NOTE | 2025-04-20 13:38 | ECG ---
[facility] Test Date: 2025-04-20 Test Time: 13:37:06 Pat Name: KALINA BOSWELL Department: Room: 0215T B Gender: M Real Time Analyst: JOHN : 1965 Requested By: JAMAR VIVAR Order Number: [id number] Reading MD: Orlin Mccracken Measurements Intervals [place] Rate: 65 P: 3 [place]: 168 QRS: 20 QRSD: 125 T: 182 QT: 448 QTc: 466 Interpretive Statements Sinus rhythm Nonspecific intraventricular conduction delay Abnrm T, consider ischemia, anterolateral lds Electronically Signed On 04-20-2025 18:33:39 PDT by Orlin Mccracken Please click the below link to view image of tracing.
--- NOTE | 2025-04-20 13:43 | DVH ---
CLINICAL INDICATION: pain TECHNIQUE: 3 radiographic views of the left shoulder were obtained. Comparison: None FINDINGS/IMPRESSION: There is no evidence of acute fracture or dislocation. The visualized joint space is well maintained. The alignment is anatomical. There is no radiopaque foreign body.
--- NOTE | 2025-04-20 16:48 | DVHSR ---
APPROVED REPORT EXAM: Two-dimensional and M-mode echocardiogram with Doppler and color Doppler. Blood Pressure: 133/95 mmHg INDICATION Patient has pain RISK FACTORS Obesity: Height: 5'7", Weight: 220 DIMENSIONS LVDd4.4 (3.8-5.7cm)LA (2D)3.0 (1.9-4.0cm)Aortic Root3.9 (2.0-3.7cm) LVDs2.4 (2.5-4.0cm)LA (MM) (1.9-4.0cm)Aortic Cusp Exc1.7 (1.5-2.0cm) EF (%) 65.0 (55-70%)Rt. Atrium3.1 (1.9-4.0cm)Asc. Aorta cm IVSd1.2 (0.7-1.1cm)RV (D)2.7 (1.8-2.4cm) PWd1.1 (0.7-1.1cm) Mitral Valve MitralMitral Stenosis E wave0.50m/sMV Mean GR.mmHg A wave0.83m/sMV Peak GR.mmHg E/A ratio0.62D MVAcm2 DECEL [id number] 1/2 Timems Aortic Valve Aortic ValveAortic Stenosis V11.45m/Demetrius Mean GR.7mmHg V21.47m/Demetrius Peak GR.9mmHg LVOT Diameter2.2 (1.8-2.4cm)Doppler AVA3.75cm2 Pulmonic Valve V21.02m/s Other Information Technically limited study due to body habitus. Conclusion Left ventricle: Concentric left ventricular hypertrophy was seen. Left ventricular systolic functio n was hyperdynamic. LVEF was 75%. Systolic obliteration of left ventricular cavity was seen. Abnor mal relaxation of left ventricular diastolic function was observed. Right ventricle is normal-sized with normal systolic function. Both atria were normal-sized. Aortic valve: Aortic valve was trileaflet. There was no aortic insufficiency/stenosis. There was no mitral/tricuspid regurgitation. There was no pulmonary valve insufficiency. As there was no good tricuspid regurgitation jet, right ventricular systolic pressure could not be es timated. There was no pericardial effusion. Aortic root was mildly dilated at 3.9 cm.
--- NOTE | 2025-04-20 18:12 | DVHINCON2 ---
Date of service: Apr 20, 2025 History of Present Illness HPI Patient is a 60-year-old gentleman who presented with few days of upper abdominal discomfort/nausea. He mentions that he was somehow short of breath also. He is poor historian. Cardiology is involved for cardiac aspects of care. Patient mentions that his last cardiology evaluation for him was over 5 years ago in [place]. He mentions that he has moved to this town for the past few years and has not seen a tower equipment repairer. He mentions previously known history of heart failure (does not know the type of it). He also mentions old history of CVA. He mentions that he was on Ozempic for the past few months and feels that the Ozempic has been affecting his appetite and has been producing the upper abdominal discomfort. Does have baseline poor functional capacity. Emiliano es any exertional chest discomfort. Home Meds Active Scripts Cephalexin Monohydrate (Cephalexin) 500 Mg Cap, 1 CAP PO QID, #40 CAP Prov:VANCE KAMINSKI 09/24/24 Reported Medications Insulin Glargine (Insulin Glargine) 100 Unit/Ml Alee, 22 UNIT SC DAILY, ML 06/01/24 Insulin Aspart (Novolog) 100 Unit/Ml Inj, 100 UNIT IJ, INJ 06/01/24 Losartan Potassium (Losartan Potassium) 50 Mg Tab, 50 MG PO DAILY for 30 Days, MG 06/01/24 Atorvastatin Calcium (ATORVASTATIN CALCIUM) 40 Mg Tab, 1 TAB PO DAILY, #30 TAB 5 Refills 06/01/24 Metformin Hydrochloride (Metformin Hcl) 500 Mg Tab, 500 MG PO IBID for 30 Days, MG 06/01/24 Past Medical History Others Past medical history reportedly includes diabetes mellitus, obesity, hypertension, hyperlipidemia, heart failure (with type? ), old history of CVA, history of hepatitis-C and old history of tonsillectomy. He mentions that recently he was told that he has some kidney problem (does not know the detail). 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 Patient Family History: Cerebrovascular accident (CVA) G8 MOTHER FH: heart disease G8 FATHER Smoker: No Hx (Negative) Alocohol: None Review of Systems All Other Systems Fourteen point review of system was performed. Relevant findings as per above and as per HPI. Otherwise negative. H&P Exam Vital Signs Vital Signs Date Time Temp Pulse Resp B/P (MAP) Pulse Ox O2 Delivery O2 Flow Rate FiO2 04/20/25 16:52 97.5 73 18 138/78 (98) 96 97.5 04/20/25 08:00 Room Air* 0 21 General Appeara: Well developed, Obese Head Exam: Normal inspection Eye Exam: bilateral eye PERRL Mouth: Normal Inspection Pulmonary/Respiratory: Rhonci Cardiovascular/Chest: Regular rate Peripheral Pulses: 2+ carotid (R), 2+ carotid (L), 2+ femoral (R), 2+ femoral (L), 2+ dorsalis pedis (R), 2+ dorsalis pedis (L), 2+ Radial (R), 2+ Radial (L) Abdominal Exam: Normal bowel sounds, Soft Neuro/Mental St: Alert, Oriented Appearance: Appropriate appearance Eye contact/ Speech: Cooperative Labs/Xrays Labs Test 04/20/25 16:30 04/20/25 13:30 04/20/25 06:26 04/20/25 05:47 Range/Units Troponin I High Sensitivity 10 </=54 ng/L Plasma/Serum Blood Alcohol 4.8 <10 mg/dL POC Glucose 83 70-106 mg/dl White Blood Count 7.8 4.4-10.8 10^3/uL Red Blood Count 4.52 4.5-5.90 10^6/uL Hemoglobin 14.4 13.5-17.5 g/dL Hematocrit 41.5 41.0-53.0 % Mean Corpuscular Volume 91.8 80.0-100.0 fL Mean Corpuscular Hemoglobin 31.8 28.0-32.0 pg Mean Corpuscular Hemoglobin Concent 34.6 32.0-36.0 g/dL Red Cell Distribution Width 13.9 11.8-14.3 % Platelet Count 171 140-450 10^3/uL Mean Platelet Volume 9.2 6.9-10.8 fL Neutrophils (%) (Auto) 54.2 37.0-80.0 % Lymphocytes (%) (Auto) 34.7 10.0-50.0 % Monocytes (%) (Auto) 8.6 0.0-12.0 % Eosinophils (%) (Auto) 2.2 0.0-7.0 % Basophils (%) (Auto) 0.3 0.0-2.0 % Neutrophils # (Auto) 4.2 1.6-8.6 10 ^3/uL Lymphocytes # (Auto) 2.7 0.4-5.4 10 ^3/uL Monocytes # (Auto) 0.7 0-1.3 10 ^3/uL Eosinophils # (Auto) 0.2 0-0.8 10 ^3/uL Basophils # (Auto) 0 0-0.2 10 ^3/uL Nucleated Red Blood Cells 0.1 % Sodium Level 139 136-145 mmol/L Potassium Level 3.8 3.5-5.1 mmol/L Chloride Level 106 98-107 mmol/L Carbon Dioxide Level 23 20-31 mmol/L Anion Gap 10 5-15 Blood Urea Nitrogen 28 H 9-23 mg/dL Creatinine 3.58 H 0.700-1.30 mg/dL Glomerular Filtration Rate Calc 19 >90 mL/min BUN/Creatinine Ratio 7.8 L 10.0-20.0 Serum Glucose 80 74-106 mg/dL Calcium Level 8.4 L 8.7-10.4 mg/dL Total Bilirubin 1.0 0.2-1.0 mg/dL Aspartate Amino Transferase (AST) 73 H 13-40 U/L Alanine Aminotransferase (ALT) 92 H 7-40 U/L Alkaline Phosphatase 63 46-116 U/L Total Protein 7.7 5.7-8.2 g/dL Albumin 3.8 3.2-4.8 g/dL Lipase 58 H 12-53 U/L Test 04/19/25 06:16 Range/Units Urine Color Yellow Yellow Urine Clarity Clear Clear Urine pH 5.5 5.0-9.0 Urine Specific [place] 1.020 1.001-1.035 Urine Protein 1+ H Negative Urine Ketones Negative Negative Urine Blood Negative Negative /uL Urine Nitrite Negative Negative Urine Bilirubin Negative Negative Urine Urobilinogen 2 H Negative mg/dL Urine Leukocyte Esterase Negative Negative /uL Urine RBC 1 0 - 3 /hpf Urine Microscopic WBC 4 H 0-3 /HPF Urine Squamous Epithelial Cells Few <5 /hpf Urine Bacteria None seen None Seen /hpf Urine Hyaline Casts Few 0 - 2 /lpf Urine Mucus Few None Seen Urine Glucose Normal Normal mg/dL Assessment/Plan Plan Patient is a 60-year-old gentleman who presented with few days of upper abdominal discomfort/nausea. He mentions that he was somehow short of breath also. He is poor historian. Cardiology is involved for cardiac aspects of care. Patient mentions that his last cardiology evaluation for him was over 5 years ago in [place]. He mentions that he has moved to this town for the past few years and has not seen a tower equipment repairer. He mentions previously known history of heart failure (does not know the type of it). He also mentions old history of CVA. He mentions that he was on Ozempic for the past few months and feels that the Ozempic has been affecting his appetite and has been producing the upper abdominal discomfort. Does have baseline poor functional capacity. Denies any exertional chest discomfort. Obese gentleman. Not in acute distress. No JVD. Mucosa is pink and wet. No carotid bruit. Not using accessory muscles of breathing. Scattered rhonchi in the lungs is heard. No rales. Cardiac: Regular, no thrill. Systolic murmur 2/6 in the apex is heard. Abdomen is soft. Bowel sound is positive. Nontender. Extremities reveal 2+ edema bilaterally. Past medical history reportedly includes diabetes mellitus, obesity, hypertension, hyperlipidemia, heart failure (with type? ), old history of CVA, history of hepatitis-C and old history of tonsillectomy. He mentions that recently he was told that he has some kidney problem (does not know the detail). 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 Creatinine: 3.88 - 3.58 GFR: 17 - 19 BUN: 28 - 28 Potassium: 4.0 - 3.8 Troponin (high sensitive): 13 -13 -10 Lipase: 69 - 58 Abdominal ultrasound revealed: IMPRESSION: Hepatomegaly. The liver is diffusely echogenic which may be secondary to steatosis or another diffuse hepatic process. Correlate clinically and with liver function tests. Left shoulder x-ray revealed: There is no evidence of acute fracture or dislocation. The visualized joint space is well maintained. The alignment is anatomical. There is no radiopaque foreign body. EKG revealed sinus rhythm with nonspecific ST-T changes Tele reveals sinus rhythm Echocardiogram revealed: Left ventricle: Concentric left ventricular hypertrophy was seen. Left ventricular systolic function was hyperdynamic. LVEF was 75%. Systolic obliteration of left ventricular cavity was seen. Abnormal relaxation of left ventricular diastolic function was observed. Right ventricle is normal-sized with normal systolic function. Both atria were normal-sized. Aortic valve: Aortic valve was trileaflet. There was no aortic insufficiency/stenosis. There was no mitral/tricuspid regurgitation. There was no pulmonary valve insufficiency. As there was no good tricuspid regurgitation jet, right ventricular systolic pressure could not be estimated. There was no pericardial effusion. Aortic root was mildly dilated at 3.9 cm. Patient is a 60-year-old gentleman who presented with abdominal discomfort/nausea and shortness of breath. There has been some nonspecific EKG changes. As per patient, he does have history of heart failure. Echocardiogram revealed preserved left ventricular systolic function. Is it possible that the patient has some component of diastolic heart failure? Presentation at this point is not considered cardiac. Serial high sensitive troponin has been negative. Acute coronary syndrome is not considered. Elective/outpatient ischemic workup can be considered. Presentation questions pancreatitis. Lipase has been elevated which also is in favor of pancreatitis. Could the presentation be secondary to Ozempic use? It is of note that the patient's kidney function has not been good. Baseline kidney function is not available to review. Nephrology evaluation can be justified Intractable abdominal pain Pancreatitis Hepatomegaly CKD Heart failure (questionable diastolic) History of CVA Diabetes mellitus Hypertension Hyperlipidemia History of noncompliance Cardiac suggestion for management: Managed on telemetry Follow-up electrolytes and kidney function tests and correct abnormalities. Keep potassium above 4 and magnesium above 2 Request for BNP For now, 81 mg aspirin daily is suggested Request for chest x-ray Electively and as outpatient, ischemic workup/stress test could be justified GI evaluation for possible pancreatitis is advised Nephrology evaluation for abnormal kidney function test is advised For now: Suggestion is to hold/stop Ozempic. Further evaluation and management depends on the above and clinical course Thank you for consultation Plan discussed with: Patient, Other (nurse) LAURA MCKEON MD Apr 20, 2025 18:12
[2025-04-20] MEDS: ATORVASTATIN 20 MG TAB PO SCH (22:08)
[2025-04-21] VITALS (9 sets, daily range): BP systolic 123–151; BP diastolic 76–103; PULSE 69–76; RESP 16–20; TEMP 97.8–98.6; O2SAT 94–99
[2025-04-21 06:56] LABS: Anion Gap 8 (5-15); Carbon Dioxide 25 mmol/L (20-31); Chloride 105 mmol/L (98-107); Potassium 4.3 mmol/L (3.5-5.1); Sodium 138 mmol/L (136-145)
[2025-04-21 06:57] LABS: Calcium 8.7 mg/dL (8.7-10.4)
[2025-04-21 07:01] LABS: Glucose 93 mg/dL (74-106)
[2025-04-21 07:02] LABS: BUN/Creatinine Ratio 11.0 (10.0-20.0)
[2025-04-21 07:03] LABS: Blood Urea Nitrogen 27 mg/dL (9-23)
--- NOTE | 2025-04-21 08:11 | DVHPN2 ---
Progress Note - Dictate Date Seen: Apr 21, 2025 Medical Necessity Reason Pt with a Central, PICC or Fol: No vital signs Vital Sign Date Time Temp Pulse Resp B/P (MAP) Pulse Ox O2 Delivery O2 Flow Rate FiO2 04/21/25 05:00 98.3 73 17 151/103 (119) 98 98.3 04/20/25 20:00 Room Air* 0 21 Total Intake and Output 04/20/25 04/20/25 04/21/25 15:00 23:00 07:00 Intake Total 360 ml 400 ml Balance 360 ml 400 ml medications Current Medications Medications Dose Ordered Sig/Stefan Route Start Time Stop Time Status Last Admin Dose Admin Sodium Chloride 1,000 ml @ 120 mls/hr Q8H20M IV 04/19/25 22:00 04/21/25 07:20 120 MLS/HR Morphine Sulfate 2 mg Q4HPRN PRN IV 04/19/25 22:00 04/20/25 13:00 2 MG Nitroglycerin 0.4 mg Q5MINP PRN SL 04/19/25 22:00 Morphine Sulfate 2 mg Q30M PRN IV 04/19/25 22:00 Losartan Potassium 50 mg DAILY PO 04/21/25 10:00 Atorvastatin Calcium 20 mg HS PO 04/20/25 22:00 04/20/25 22:08 20 MG laboratory and microbiology Laboratory Tests 04/21/25 05:35 04/20/25 05:47 Test 04/21/25 05:35 Range/Units Serum Glucose 93 74-106 mg/dL Assessment/Plan Patient is a 60-year-old gentleman who presented with few days of upper abdominal discomfort/nausea. He mentions that he was somehow short of breath also. He is poor historian. Cardiology is involved for cardiac aspects of care. Patient mentions that his last cardiology evaluation for him was over 5 years ago in [place]. He mentions that he has moved to this town for the past few years and has not seen a asp net programmer. He mentions previously known history of heart failure (does not know the type of it). He also mentions old history of CVA. He mentions that he was on Ozempic for the past few months and feels that the Ozempic has been affecting his appetite and has been producing the upper abdominal discomfort. Does have baseline poor functional capacity. Denies any exertional chest discomfort. Obese gentleman. Not in acute distress. No JVD. Mucosa is pink and wet. No carotid bruit. Not using accessory muscles of breathing. Scattered rhonchi in the lungs is heard. No rales. Cardiac: Regular, no thrill. Systolic murmur 2/6 in the apex is heard. Abdomen is soft. Bowel sound is positive. Nontender. Extremities reveal 2+ edema bilaterally. Past medical history reportedly includes diabetes mellitus, obesity, hypertension, hyperlipidemia, heart failure (with type? ), old history of CVA, history of hepatitis-C and old history of tonsillectomy. He mentions that recently he was told that he has some kidney problem (does not know the detail). 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 Creatinine: 3.88 - 3.58 - 2.45 GFR: 17 - - 30 BUN: 28 - 28 Potassium: 4.0 - 3.8 - 4.3 Troponin (high sensitive): 13 -13 -10 Lipase: 69 - 58 Abdominal ultrasound revealed: IMPRESSION: Hepatomegaly. The liver is diffusely echogenic which may be secondary to steatosis or another diffuse hepatic process. Correlate clinically and with liver function tests. Left shoulder x-ray revealed: There is no evidence of acute fracture or dislocation. The visualized joint space is well maintained. The alignment is anatomical. There is no radiopaque foreign body. Chest xry revealed: IMPRESSION: 1. No evidence of acute disease. EKG revealed sinus rhythm with nonspecific ST-T changes Tele reveals sinus rhythm Echocardiogram revealed: Left ventricle: Concentric left ventricular hypertrophy was seen. Left ventricular systolic function was hyperdynamic. LVEF was 75%. Systolic obliteration of left ventricular cavity was seen. Abnormal relaxation of left ventricular diastolic function was observed. Right ventricle is normal-sized with normal systolic function. Both atria were normal-sized. Aortic valve: Aortic valve was trileaflet. There was no aortic insufficiency/stenosis. There was no mitral/tricuspid regurgitation. There was no pulmonary valve insufficiency. As there was no good tricuspid regurgitation jet, right ventricular systolic pressure could not be estimated. There was no pericardial effusion. Aortic root was mildly dilated at 3.9 cm. Patient is a 60-year-old gentleman who presented with abdominal discomfort/nausea and shortness of breath. There has been some nonspecific EKG changes. As per patient, he does have history of heart failure. Echocardiogram revealed preserved left ventricular systolic function. Is it possible that the patient has some component of diastolic heart failure? Presentation at this point is not considered cardiac. Serial high sensitive troponin has been negative. Acute coronary syndrome is not considered. Elective/outpatient ischemic workup can be considered. Presentation questions pancreatitis. Lipase has been elevated which also is in favor of pancreatitis. Could the presentation be secondary to Ozempic use? It is of note that the patient's kidney function has not been good. Baseline kidney function is not available to review. Nephrology evaluation can be justified Intractable abdominal pain Pancreatitis Hepatomegaly CKD Heart failure (questionable diastolic) History of CVA Diabetes mellitus Hypertension Hyperlipidemia History of noncompliance Cardiac suggestion for management: Managed on telemetry Follow-up electrolytes and kidney function tests and correct abnormalities. Keep potassium above 4 and magnesium above 2 Request for BNP For now, 81 mg aspirin daily is suggested Electively and as outpatient, ischemic workup/stress test could be justified GI evaluation for possible pancreatitis is advised Nephrology evaluation for abnormal kidney function test is advised For now: Suggestion is to hold/stop Ozempic. Further evaluation and management depends on the above and clinical course A total of 55 minutes was spent reviewing the patient record, examining the patient, making a diagnostic and therapeutic plan, discussing this plan with medical personnel, following up on diagnostic studies and following the patient for clinical stability excluding any and all procedures. At least 50% of this time was spent in direct, [id number] contact. Thank you for allowing me to participate in this patient's care. Further recommendations will depend on patient's clinical course. Please do not hesitate to contact me if you have any questions or concerns. This medical document was created using electronic medical record system with [employer] computerized dictation system. Although this document has been carefully reviewed, there may still be some phonetic and typographical errors. These areas are purely typographical due to the imperfection of the software programs, and do not reflect any compromise in the patient's medical care. Plan discussed with: Patient, Other (nurse) LAURA MCKEON MD Apr 21, 2025 08:11
--- NOTE | 2025-04-21 08:22 | DVH ---
INDICATION: SOB TECHNIQUE: Frontal view of the chest. COMPARISON: XY CHEST TWO VIEWS ROUTINE on DOS: 09/24/24, XY CHEST PORTABLE on DOS: 04/26/23 FINDINGS: . The heart and mediastinal contours are grossly unremarkable. There is no evidence of pleural disea se. The lungs are clear. The bony structures of the chest are intact without fracture. IMPRESSION: 1. No evidence of acute disease.
[2025-04-21] MEDS: LOSARTAN POTASSIUM 50 MG TAB PO SCH (10:27)
--- NOTE | 2025-04-21 11:37 | DVHPN2 ---
Progress Note - Dictate Date Seen: Apr 21, 2025 Medical Necessity Reason Pt with a Central, PICC or Fol: No vital signs Vital Sign Date Time Temp Pulse Resp B/P (MAP) Pulse Ox O2 Delivery O2 Flow Rate FiO2 04/21/25 10: 135/96 04/21/25 09:00 98.6 69 20 99 98.6 04/20/25 20:00 Room Air* 0 21 Total Intake and Output 04/20/25 04/20/25 04/21/25 15:00 23:00 07:00 Intake Total 360 ml 400 ml Balance 360 ml 400 ml medications Current Medications Medications Dose Ordered Sig/Stefan Route Start Time Stop Time Status Last Admin Dose Admin Sodium Chloride 1,000 ml @ 120 mls/hr Q8H20M IV 04/19/25 22:00 04/21/25 07:20 120 MLS/HR Morphine Sulfate 2 mg Q4HPRN PRN IV 04/19/25 22:00 04/20/25 13:00 2 MG Nitroglycerin 0.4 mg Q5MINP PRN SL 04/19/25 22:00 Morphine Sulfate 2 mg Q30M PRN IV 04/19/25 22:00 Losartan Potassium 50 mg DAILY PO 04/21/25 10:00 04/21/25 10:27 50 MG Atorvastatin Calcium 20 mg HS PO 04/20/25 22:00 04/20/25 22:08 20 MG objective General Appearance: alert, no distress HEENT: EOMI, PERRLA, normal external inspect of ears, no icterus, no nasal drainage Neck: no carotid bruit, no jugular venous distention (JVD), no lymphadenopathy Chest: normal thorax Respiratory: clear to auscultation, normal air movement Cardiovascular: regular rate and rhythm, no diastolic murmur, no jugular venous distention (JVD), no rub, no systolic murmur Abdominal: soft, no hepatomegaly, no mass, no splenomegaly, no tenderness Genitourinary: grossly normal external Musculoskeletal: no joint tenderness, no swelling Extremities: normal pulses, no calf tenderness, no clubbing, no cyanosis, no edema Skin: no bruising, no jaundice, no rash Neurological: alert, No focal deficit laboratory and microbiology Laboratory Tests 04/21/25 05:35 04/20/25 05:47 Test 8/28/25 05:35 Range/Units Serum Glucose 93 74-106 mg/dL Problem List 1. Intractable nausea and vomiting Monitor, IV fluids, antiemetics 2. HLD Monitor, restart statin, PPI 3. Benign essential HTN Monitor, antihypertensives, PPI, DVT prophylaxis 4. Obesity Monitor, cardiac diet 5. Pancreatitis Monitor, GI consult 6. CKD stage 3b Monitor, nephrology consult Assessment/Plan Subjective: Patient is awake and alert. Objective: Yesterday patient had complaints of left shoulder pain. Patient was seen by cardiology. Troponin levels were negative. Echocardiogram showed possible diastolic heart failure with an EF of 75%. Patient is a diabetic currently on insulin sliding scale. Patient's abdominal pain is most likely related to Ozempic. GI has been consulted. Diet will be advanced today with plan for endoscopy in AM. Plan: Continue current treatment. Endoscopy scheduled for a.m. Discharge planning once cleared by GI. Evaluation by cardiology for possible diastolic heart failure Plan discussed with: Patient, Other JAMAR VIVAR NP Apr 21, 2025 11:37
--- NOTE | 2025-04-21 14:34 | DVHINCON2 ---
GI Consult Consult Note GI consult note Date of Consultation: 04/21/2025 Chief Complaint: Pancreatitis Referring Physician: GHAZALA FISHER H&P: 60-year-old male presented to ER with complains of abdominal pain. Also has some complains of nausea, which is ongoing for the past one month since the dose of Ozempic has been increased. No vomiting. No hematemesis. Patient mostly has upper abdominal discomfort which is improving at this time. Reports weight loss of 26 lb in the past two months since using Ozempic. No fevers or chills Past Medical History: CHF, CVA, DM, High Lipids, HTN Past Surgical History: Tonsillectomy Social History: NO smoking, drinking ETOH and use of illegal drugs. Family History: Noncontributory Review of Systems: Constitutional: no fever, chill, weight loss HEENT: no eye pain, no hearing loss, no oral lesion, no scleral icterus Heart: no chest pain, no chest pressure Lung: no cough, no dyspnea with exertion Abdomen: see HPI Physical exam: General: NAD, AAOX3 Chest: lung iverson clear to auscultation Heart: RRR, no murmur Abdomen: Mild upper abdomen tenderness to palpation, +BS Labs: Labs Test 04/21/25 05:35 04/20/25 16:30 04/20/25 13:30 04/20/25 06:26 Range/Units Sodium Level 138 136-145 mmol/L Potassium Level 4.3 3.5-5.1 mmol/L Chloride Level 105 98-107 mmol/L Carbon Dioxide Level 25 20-31 mmol/L Anion Gap 8 5-15 Blood Urea Nitrogen 27 H 9-23 mg/dL Creatinine 2.45 H 0.700-1.30 mg/dL Glomerular Filtration Rate Calc 30 >90 mL/min BUN/Creatinine Ratio 11.0 10.0-20.0 Serum Glucose 93 74-106 mg/dL Calcium Level 8.7 8.7-10.4 mg/dL Troponin I High Sensitivity 10 </=54 ng/L Plasma/Serum Blood Alcohol 4.8 <10 mg/dL POC Glucose 83 70-106 mg/dl Test 04/20/25 05:47 04/19/25 06:16 Range/Units White Blood Count 7.8 4.4-10.8 10^3/uL Red Blood Count 4.52 4.5-5.90 10^6/uL Hemoglobin 14.4 13.5-17.5 g/dL Hematocrit 41.5 41.0-53.0 % Mean Corpuscular Volume 91.8 80.0-100.0 fL Mean Corpuscular Hemoglobin 31.8 28.0-32.0 pg Mean Corpuscular Hemoglobin Concent 34.6 32.0-36.0 g/dL Red Cell Distribution Width 13.9 11.8-14.3 % Platelet Count 171 140-450 10^3/uL Mean Platelet Volume 9.2 6.9-10.8 fL Neutrophils (%) (Auto) 54.2 37.0-80.0 % Lymphocytes (%) (Auto) 34.7 10.0-50.0 % Monocytes (%) (Auto) 8.6 0.0-12.0 % Eosinophils (%) (Auto) 2.2 0.0-7.0 % Basophils (%) (Auto) 0.3 0.0-2.0 % Neutrophils # (Auto) 4.2 1.6-8.6 10 ^3/uL Lymphocytes # (Auto) 2.7 0.4-5.4 10 ^3/uL Monocytes # (Auto) 0.7 0-1.3 10 ^3/uL Eosinophils # (Auto) 0.2 0-0.8 10 ^3/uL Basophils # (Auto) 0 0-0.2 10 ^3/uL Nucleated Red Blood Cells 0.1 % Total Bilirubin 1.0 0.2-1.0 mg/dL Aspartate Amino Transferase (AST) 73 H 13-40 U/L Alanine Aminotransferase (ALT) 92 H 7-40 U/L Alkaline Phosphatase 63 46-116 U/L Total Protein 7.7 5.7-8.2 g/dL Albumin 3.8 3.2-4.8 g/dL Lipase 58 H 12-53 U/L Urine Color Yellow Yellow Urine Clarity Clear Clear Urine pH 5.5 5.0-9.0 Urine Specific [place] 1.020 1.001-1.035 Urine Protein 1+ H Negative Urine Ketones Negative Negative Urine Blood Negative Negative /uL Urine Nitrite Negative Negative Urine Bilirubin Negative Negative Urine Urobilinogen 2 H Negative mg/dL Urine Leukocyte Esterase Negative Negative /uL Urine RBC 1 0 - 3 /hpf Urine Microscopic WBC 4 H 0-3 /HPF Urine Squamous Epithelial Cells Few <5 /hpf Urine Bacteria None seen None Seen /hpf Urine Hyaline Casts Few 0 - 2 /lpf Urine Mucus Few None Seen Urine Glucose Normal Normal mg/dL Imaging: Abdominal ultrasound IMPRESSION: Hepatomegaly. The liver is diffusely echogenic which may be secondary to steatosis or another diffuse hepatic process. Correlate clinically and with liver function tests. Assessment: Abdominal pain Persistent nausea Pancreatitis possible secondary to GLP1 use Hepatomegaly Plan: -discussed with Dr. Borrero Monitor lipase in a.m. Zofran We will continue to monitor patient Thank you for this consult Date of Service: Apr 21, 2025 Billing Provider: ABIOLA DILLARD Common Visit Codes: CONSULT ONLY Consultation Codes: [id number] CONSULT <60MIN ABIOLA DILLARD Apr 21, 2025 14:34
[2025-04-22] VITALS (9 sets, daily range): BP systolic 125–161; BP diastolic 77–102; PULSE 62–83; RESP 16–97; TEMP 97.6–98.2; O2SAT 93–97
[2025-04-22 07:27] LABS: Hematocrit 45.4 % (41.0-53.0); Hemoglobin 15.5 g/dL (13.5-17.5); Mean Corpuscular Hemoglobin 31.2 pg (28.0-32.0); Mean Corpuscular Volume 91.4 fL (80.0-100.0); Nucleated Red Blood Cells % 0.2 %
[2025-04-22 07:43] LABS: Albumin 4.2 g/dL (3.2-4.8); Alkaline Phosphatase 67 U/L (46-116); Anion Gap 9 (5-15); BUN/Creatinine Ratio 12.1 (10.0-20.0); Bilirubin, Total 0.7 mg/dL (0.2-1.0); Calcium 9.2 mg/dL (8.7-10.4); Carbon Dioxide 24 mmol/L (20-31); Chloride 102 mmol/L (98-107); Glucose 80 mg/dL (74-106); Potassium 4.3 mmol/L (3.5-5.1)
--- NOTE | 2025-04-22 07:49 | DVHPN2 ---
Progress Note - Dictate Date Seen: Apr 22, 2025 Medical Necessity Reason Pt with a Central, PICC or Fol: No vital signs Vital Sign Date Time Temp Pulse Resp B/P (MAP) Pulse Ox O2 Delivery O2 Flow Rate FiO2 04/22/25 05:00 97.6 69 16 161/99 (119) 95 97.6 04/21/25 20:00 Room Air* 0 21 Total Intake and Output 04/21/25 04/21/25 04/22/25 15:00 23:00 07:00 Intake Total 230 ml 700 ml 420 ml Output Total 600 ml Balance 230 ml 100 ml 420 ml medications Current Medications Medications Dose Ordered Sig/Stefan Route Start Time Stop Time Status Last Admin Dose Admin Sodium Chloride 1,000 ml @ 120 mls/hr Q8H20M IV 04/19/25 22:00 04/22/25 00:40 120 MLS/HR Morphine Sulfate 2 mg Q4HPRN PRN IV 04/19/25 22:00 04/21/25 11:50 2 MG Nitroglycerin 0.4 mg Q5MINP PRN SL 04/19/25 22:00 Morphine Sulfate 2 mg Q30M PRN IV 04/19/25 22:00 Losartan Potassium 50 mg DAILY PO 04/21/25 10:00 04/21/25 10:27 50 MG Atorvastatin Calcium 20 mg HS PO 04/20/25 22:00 04/21/25 22:08 20 MG Aspirin 81 mg DAILY PO 04/21/25 11:45 laboratory and microbiology Laboratory Tests 04/22/25 04:45 Test 04/22/25 04:45 Range/Units Serum Glucose Pending Assessment/Plan Patient is a 60-year-old gentleman who presented with few days of upper abdominal discomfort/nausea. He mentions that he was somehow short of breath also. He is poor historian. Cardiology is involved for cardiac aspects of care. Patient mentions that his last cardiology evaluation for him was over 5 years ago in [place]. He mentions that he has moved to this town for the past few years and has not seen a certified hyperbaric technician. He mentions previously known history of heart failure (does not know the type of it). He also mentions old history of CVA. He mentions that he was on Ozempic for the past few months and feels that the Ozempic has been affecting his appetite and has been producing the upper abdominal discomfort. Does have baseline poor functional capacity. Denies any exertional chest discomfort. Obese gentleman. Not in acute distress. No JVD. Mucosa is pink and wet. No carotid bruit. Not using accessory muscles of breathing. Scattered rhonchi in the lungs is heard. No rales. Cardiac: Regular, no thrill. Systolic murmur 2/6 in the apex is heard. Abdomen is soft. Bowel sound is positive. Nontender. Extremities reveal 2+ edema bilaterally. Past medical history reportedly includes diabetes mellitus, obesity, hypertension, hyperlipidemia, heart failure (with type? ), old history of CVA, history of hepatitis-C and old history of tonsillectomy. He mentions that recently he was told that he has some kidney problem (does not know the detail). 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 Creatinine: 3.88 - 3.58 - 2.45 - 1.98 GFR: 17 - 19 - 30 - 38 BUN: 28 - 28 - 24 Potassium: 4.0 - 3.8 - 4.3 - 4.3 Troponin (high sensitive): -10 Lipase: 69 - 58 83 BNP: 30.66 Abdominal ultrasound revealed: IMPRESSION: Hepatomegaly. The liver is diffusely echogenic which may be secondary to steatosis or another diffuse hepatic process. Correlate clinically and with liver function tests. Left shoulder x-ray revealed: There is no evidence of acute fracture or dislocation. The visualized joint space is well maintained. The alignment is anatomical. There is no radiopaque foreign body. Chest xry revealed: IMPRESSION: 1. No evidence of acute disease. EKG revealed sinus rhythm with nonspecific ST-T changes Tele reveals sinus rhythm Echocardiogram revealed: Left ventricle: Concentric left ventricular hypertrophy was seen. Left ventricular systolic function was hyperdynamic. LVEF was 75%. Systolic obliteration of left ventricular cavity was seen. Abnormal relaxation of left ventricular diastolic function was observed. Right ventricle is normal-sized with normal systolic function. Both atria were normal-sized. Aortic valve: Aortic valve was trileaflet. There was no aortic insufficiency/stenosis. There was no mitral/tricuspid regurgitation. There was no pulmonary valve insufficiency. As there was no good tricuspid regurgitation jet, right ventricular systolic pressure could not be estimated. There was no pericardial effusion. Aortic root was mildly dilated at 3.9 cm. Patient is a 60-year-old gentleman who presented with abdominal discomfort/nausea and shortness of breath. There has been some nonspecific EKG changes. As per patient, he does have history of heart failure. Echocardiogram revealed preserved left ventricular systolic function. Is it possible that the patient has some component of diastolic heart failure? Presentation at this point is not considered cardiac. Serial high sensitive troponin has been negative. Acute coronary syndrome is not considered. Elective/outpatient ischemic workup can be considered. Presentation questions pancreatitis. Lipase has been elevated which also is in favor of pancreatitis. Could the presentation be secondary to Ozempic use? It is of note that the patient's kidney function has not been good. Baseline kidney function is not available to review. Nephrology evaluation can be justified Intractable abdominal pain Pancreatitis Hepatomegaly CKD Heart failure (questionable diastolic) History of CVA Diabetes mellitus Hypertension Hyperlipidemia History of noncompliance Cardiac suggestion for management: Managed on telemetry Follow-up electrolytes and kidney function tests and correct abnormalities. Keep potassium above 4 and magnesium above 2 For now, 81 mg aspirin daily is suggested Electively and as outpatient, ischemic workup/stress test could be justified GI evaluation for possible pancreatitis is advised Nephrology evaluation for abnormal kidney function test is advised For now: Suggestion is to hold/stop Ozempic. Cardiac [place], patient is stable Further evaluation and management depends on the above and clinical course A total of 55 minutes was spent reviewing the patient record, examining the patient, making a diagnostic and therapeutic plan, discussing this plan with medical personnel, following up on diagnostic studies and following the patient for clinical stability excluding any and all procedures. At least 50% of this time was spent in direct, [id number] contact. Thank you for allowing me to participate in this patient's care. Further recommendations will depend on patient's clinical course. Please do not hesitate to contact me if you have any questions or concerns. This medical document was created using electronic medical record system with [employer] computerized dictation system. Although this document has been carefully reviewed, there may still be some phonetic and typographical errors. These areas are purely typographical due to the imperfection of the software programs, and do not reflect any compromise in the patient's medical care. Plan discussed with: Patient, Other (nurse) LAURA MCKEON MD Apr 22, 2025 07:48
[2025-04-22 08:14] LABS: Alanine Aminotransferase 85 U/L (7-40); Blood Urea Nitrogen 24 mg/dL (9-23); Sodium 135 mmol/L (136-145); Total Protein 8.3 g/dL (5.7-8.2)
[2025-04-22 12:09] LABS: Protein, Urine 78.6 mg/dL (1-14)
[2025-04-22 12:10] LABS: Protein, Urine 79.8 mg/dL (1-14)
--- NOTE | 2025-04-22 13:05 | DVHPN2 ---
Subjective Patient admits to having abdominal discomfort after regular diet and feeling of fullness Mild abdominal pain No nausea or vomiting No bowel movements for four days Changes from previous H/P or p: No Changes Objective Vitals Vital Signs Date Time Temp Pulse Resp B/P (MAP) Pulse Ox O2 Delivery O2 Flow Rate FiO2 04/22/25 09:48 125/77 04/22/25 09:00 97.7 78 20 94 97.7 04/22/25 08:30 Room Air* 0 21 Intake/Output Intake and Output 04/22/25 06:59 Intake Total 1350 ml Output Total 600 ml Balance 750 ml Intake Oral 1350 ml Output Urine Total 600 ml # Voids 3 General Appearance: Alert, Oriented X3, Cooperative, No acute distress, mild distress, moderate distress, severe distress, Other Lungs: Clear to auscultation, Normal air movement, Other Cardiovascular: Regular rate, Normal S1, Normal S2, No murmurs, Gallops, Rubs, Other Abdomen: Normal bowel sounds, Soft, No tenderness, No hepatospenomegaly, No masses, Other Medications Current Medications Medications Dose Ordered Sig/Stefan Route Start Time Stop Time Status Last Admin Dose Admin Sodium Chloride 1,000 ml @ 120 mls/hr Q8H20M IV 04/19/25 22:00 04/22/25 00:40 120 MLS/HR Morphine Sulfate 2 mg Q4HPRN PRN IV 04/19/25 22:00 04/21/25 11:50 2 MG Nitroglycerin 0.4 mg Q5MINP PRN SL 04/19/25 22:00 Morphine Sulfate 2 mg Q30M PRN IV 04/19/25 22:00 Losartan Potassium 50 mg DAILY PO 04/21/25 10:00 04/22/25 09:48 50 MG Atorvastatin Calcium 20 mg HS PO 04/20/25 22:00 04/21/25 22:08 20 MG Aspirin 81 mg DAILY PO 04/21/25 11:45 Laboratory Results Laboratory Tests 04/22/25 04:45 Chemistry Test 04/22/25 04:45 Albumin 4.2 g/dL (3.2-4.8) Calcium Level 9.2 mg/dL (8.7-10.4) Total Protein 8.3 g/dL (5.7-8.2) H Lipid panel Test 04/22/25 04:45 Lipase 83 U/L (12-53) H Cardiac Markers Test 04/22/25 04:45 B-Type Natriuretic Peptide 30.66 pg/mL (0-100) LFT Test 04/22/25 04:45 Alanine Aminotransferase (ALT) 85 U/L (7-40) H Alkaline Phosphatase 67 U/L (46-116) Aspartate Amino Transferase (AST) 73 U/L (13-40) H Total Bilirubin 0.7 mg/dL (0.2-1.0) Urinalysis Test 04/19/25 06:16 04/22/25 10:55 Urine Color Yellow (Yellow) Urine Clarity Clear (Clear) Urine pH 5.5 (5.0-9.0) Urine Specific [place] 1.020 (1.001-1.035) Urine Protein 1+ (Negative) H Urine Ketones Negative (Negative) Urine Blood Negative /uL (Negative) Urine Nitrite Negative (Negative) Urine Bilirubin Negative (Negative) Urine Urobilinogen 2 mg/dL (Negative) H Urine Leukocyte Esterase Negative /uL (Negative) Urine RBC 1 /hpf (0 - 3) Urine Microscopic WBC 4 /HPF (0-3) H Urine Squamous Epithelial Cells Few /hpf (<5) Urine Bacteria None seen /hpf (None Seen) Urine Hyaline Casts Few /lpf (0 - 2) Urine Mucus Few (None Seen) Urine Glucose Normal mg/dL (Normal) Urine Creatinine 60.62 mg/dL (30.0-125.0) Urine Protein/Creatinine Ratio 1.32 Urine Sodium 88 mmol/L (40-220) Urine Total Protein 79.8 mg/dL (1-14) H Assessment/Plan Assessment/Plan Abdominal pain Persistent nausea Pancreatitis possible secondary to GLP1 use Hepatomegaly Plan Discussed with Dr. Borrero Cut back to full liquid diet from regular diet Check lipase in a.m. Recommend holding Ozempic for now Zofran as needed Stool softeners and lactulose Plan discussed with: Patient My Orders Orders - ABIOLA DILLARD Procedure Category Date Status Time Full Liq Diet DIET 04/22/25 Verified Lunch Lipase LAB 04/23/25 Verified 04:59 Date of Service: Apr 22, 2025 Billing Provider: ABIOLA DILLARD Common Visit Codes: [id number] INP/OBS CARE(HIGH) ABIOLA DILLARD Apr 22, 2025 13:05
[2025-04-22] MEDS: DOCUSATE SOD 100 MG CAP PO ONE (13:54)
--- NOTE | 2025-04-22 14:44 | DVHPN2 ---
Progress Note Date Seen: Apr 22, 2025 Medical Necessity Reason Pt with a Central, PICC or Fol: No Objective vital signs Vital Sign Date Time Temp Pulse Resp B/P (MAP) Pulse Ox O2 Delivery O2 Flow Rate FiO2 04/22/25 13:00 97.8 62 97 145/97 (113) 97 97.8 04/22/25 08:30 Room Air* 0 21 Total Intake and Output 04/21/25 04/21/25 04/22/25 15:00 23:00 07:00 Intake Total 230 ml 700 ml 420 ml Output Total 600 ml Balance 230 ml 100 ml 420 ml medications Current Medications Medications Dose Ordered Sig/Stefan Route Start Time Stop Time Status Last Admin Dose Admin Sodium Chloride 1,000 ml @ 120 mls/hr Q8H20M IV 04/19/25 22:00 04/22/25 13:55 120 MLS/HR Morphine Sulfate 2 mg Q4HPRN PRN IV 04/19/25 22:00 04/21/25 11:50 2 MG Nitroglycerin 0.4 mg Q5MINP PRN SL 04/19/25 22:00 Morphine Sulfate 2 mg Q30M PRN IV 04/19/25 22:00 Losartan Potassium 50 mg DAILY PO 04/21/25 10:00 04/22/25 09:48 50 MG Atorvastatin Calcium 20 mg HS PO 04/20/25 22:00 04/21/25 22:08 20 MG Aspirin 81 mg DAILY PO 04/21/25 11:45 Lactulose 30 ml DAILY PO 04/23/25 10:00 Examination: GENERAL:Normal, LUNGS:Normal, CVS:Normal, ABDOMEN:Normal, SKIN:Normal, NEURO:Normal laboratory and microbiology Laboratory Tests 04/22/25 04:45 Test 04/22/25 04:45 Range/Units Serum Glucose 80 74-106 mg/dL Labs and/or images reviewed: Labs reviewed by me, Image(s) reviewed by me Problem List/Assessment/Plan Problem List/Assessment/Plan Thomas Dyson is a patient with hyperlipidemia, benign essential hypertension, obesity, chronic kidney disease stage 3B, and diabetes presenting with intractable nausea and vomiting. Intractable Nausea and Vomiting Assessment: Patient was admitted for intractable nausea and vomiting. IV fluids were administered. GI was consulted. The patient's diet was advanced as tolerated, and they are currently tolerating a cardiac diet. The patient denies any pain. The abdominal pain and pancreatitis are likely related to a synthetic agent used for diabetes management (ozempic). Plan: - Continue to advance diet as tolerated - Monitor for signs of pancreatitis - Await clearance from GI for discharge Hyperlipidemia Assessment: Patient has a history of hyperlipidemia and was previously on a statin medication. Plan: - Resume statin therapy Benign Essential Hypertension Assessment: Patient has a history of benign essential hypertension and is currently on blood pressure medication. Plan: - Continue current blood pressure medication Chronic Kidney Disease Stage 3B Assessment: Patient has chronic kidney disease stage 3B. A nephrology consult was obtained. The patient complained of left shoulder pain on the . Plan: - Follow up on nephrology consult recommendations Type 2 diabetes Assessment: Patient has diabetes and is currently managed with insulin. Plan: - Continue insulin therapy with sliding scale Cardiac Evaluation Assessment: Cardiology evaluation was performed. Troponins were negative. Echocardiogram showed mild diastolic heart failure with an ejection fraction of 75%. The patient was cleared by cardiology. Obesity Assessment: Patient has a history of obesity. Plan discussed with: Patient Date of Service: Apr 22, 2025 Billing Provider: JOAN EVANS MD Common Visit Codes: [id number] INP/OBS CARE (MOD) ALINA PRIEST BLOCK SAW OPERATOR Apr 22, 2025 14:44
--- NOTE | 2025-04-22 16:29 | DVHCONRES ---
Date Seen: Apr 22, 2025 Resident Creating Document: TATO WHELAN RESIDENT History of Present Illness 60-year-old male patient with past medical history of CKD, diabetes mellitus two since 2010 presented with complaints of dizziness, shortness of breath, abdominal pain, nausea and vomiting. Patient was recently started on Ozempic. Patient was treated for possible pancreatitis use Ozempic use in the hospital with IV fluids. Nephrology was consulted for CKD management Patient seen and examined at bedside Mentioned only mild abdominal pain. Past medical history Chronic kidney disease Diabetes mellitus type 2 since 2010 Past surgical history No recent surgery Family history Nonsignificant Social history Patient denied smoking, alcohol, marijuana or other drug intake Medication history Metformin Insulin Allergic history No known allergies Past Medical History As described in the HPI Past Surgical History As described in the HPI Family History: Cerebrovascular accident (CVA) G8 MOTHER FH: heart disease G8 FATHER Allergies: Coded Allergies: NO KNOWN ALLERGIES (Unverified , 04/26/23) Home Meds Reported Medications Tamsulosin Hcl (Tamsulosin Hcl) 0.4 Mg Cap, 1 PO DAILY for 90 Days, #90 04/21/25 Atorvastatin Calcium (ATORVASTATIN CALCIUM) 20 Mg Tab, 1 TAB PO DAILY for 90 Day s, #90 04/21/25 Insulin Glargine (Basaglar Kwikpen) 100 Unit/Ml Inj, 21 UNITS SC QPM for 71 Days, #15 04/21/25 Furosemide (Furosemide) 20 Mg Tab, 1 TAB PO DAILY for 30 Days, #30 04/21/25 Aspirin (Aspirin Low Dose) 81 Mg Tab, 1 TAB PO DAILY for 90 Days, #90 04/21/25 Clopidogrel Bisulfate (CLOPIDOGREL) 75 Mg Tab, 1 TAB PO DAILY for 30 Days, #30 04/21/25 Insulin Aspart (Novolog) 100 Unit/Ml Inj, 100 UNIT IJ, INJ 06/01/24 Losartan Potassium (Losartan Potassium) 50 Mg Tab, 50 MG PO DAILY for 30 Days, MG 06/01/24 Metformin Hydrochloride (Metformin Hcl) 500 Mg Tab, 500 MG PO IBID for 30 Days, MG 06/01/24 Current Medications Current Medications Medications (Trade) Dose Ordered Sig/Stefan Route PRN Reason Start Time Stop Time Status Last Admin Lactulose 30 ml DAILY PO 04/23/25 10:00 Review of Systems As described in the HPI Vital Signs Vital Signs Date Time Temp Pulse Resp B/P (MAP) Pulse Ox O2 Delivery O2 Flow Rate FiO2 04/22/25 13:00 97.8 62 97 145/97 (113) 97 97.8 04/22/25 08:30 Room Air* 0 21 Physical Exam Examination General Appearance: Alert, Oriented X3, Cooperative, No acute distress HEENT: EOMI Respiratory: Clear to auscultation, Normal air movement Cardiovascular: Regular rate, Normal S1, Normal S2 Abdominal: Mild tenderness, Normal bowel sounds Extremities: No cyanosis, No edema, Normal pulses, No tenderness/swelling Skin: No rashes, No breakdown Neuro: Normal gait, Normal speech, Strength at 5/5 X4 ext, Normal tone, Sensation intact, Cranial nerves 3-12 NL, Reflexes 2+ Psych/Mental Status: Mental status NL, Mood NL Labs/Diagnostic Data Labs Test 04/22/25 10:55 04/22/25 04:45 04/20/25 16:30 04/20/25 13:30 Range/Units Urine Creatinine 60.62 30.0-125.0 mg/dL Urine Protein/Creatinine Ratio 1.32 Urine Sodium 88 40-220 mmol/L Urine Total Protein 79.8 H 1-14 mg/dL White Blood Count 8.3 4.4-10.8 10^3/uL Red Blood Count 4.96 4.5-5.90 10^6/uL Hemoglobin 15.5 13.5-17.5 g/dL Hematocrit 45.4 41.0-53.0 % Mean Corpuscular Volume 91.4 80.0-100.0 fL Mean Corpuscular Hemoglobin 31.2 28.0-32.0 pg Mean Corpuscular Hemoglobin Concent 34.2 32.0-36.0 g/dL Red Cell Distribution Width 14.1 11.8-14.3 % Platelet Count 193 140-450 10^3/uL Mean Platelet Volume 9.2 6.9-10.8 fL Neutrophils (%) (Auto) 52.8 37.0-80.0 % Lymphocytes (%) (Auto) 36.9 10.0-50.0 % Monocytes (%) (Auto) 7.8 0.0-12.0 % Eosinophils (%) (Auto) 2.3 0.0-7.0 % Basophils (%) (Auto) 0.2 0.0-2.0 % Neutrophils # (Auto) 4.4 1.6-8.6 10 ^3/uL Lymphocytes # (Auto) 3.1 0.4-5.4 10 ^3/uL Monocytes # (Auto) 0.6 0-1.3 10 ^3/uL Eosinophils # (Auto) 0.2 0-0.8 10 ^3/uL Basophils # (Auto) 0 0-0.2 10 ^3/uL Nucleated Red Blood Cells 0.2 % Sodium Level 135 L 136-145 mmol/L Potassium Level 4.3 3.5-5.1 mmol/L Chloride Level 102 98-107 mmol/L Carbon Dioxide Level 24 20-31 mmol/L Anion Gap 9 5-15 Blood Urea Nitrogen 24 H 9-23 mg/dL Creatinine 1.98 H 0.700-1.30 mg/dL Glomerular Filtration Rate Calc 38 >90 mL/min BUN/Creatinine Ratio 12.1 10.0-20.0 Serum Glucose 80 74-106 mg/dL Calcium Level 9.2 8.7-10.4 mg/dL Total Bilirubin 0.7 0.2-1.0 mg/dL Aspartate Amino Transferase (AST) 73 H 13-40 U/L Alanine Aminotransferase (ALT) 85 H 7-40 U/L Alkaline Phosphatase 67 46-116 U/L B-Type Natriuretic Peptide 30.66 0-100 pg/mL Total Protein 8.3 H 5.7-8.2 g/dL Albumin 4.2 3.2-4.8 g/dL Lipase 83 H 12-53 U/L Troponin I High Sensitivity 10 </=54 ng/L Plasma/Serum Blood Alcohol 4.8 <10 mg/dL Test 04/20/25 06:26 04/19/25 06:16 Range/Units POC Glucose 83 70-106 mg/dl Urine Color Yellow Yellow Urine Clarity Clear Clear Urine pH 5.5 5.0-9.0 Urine Specific [place] 1.020 1.001-1.035 Urine Protein 1+ H Negative Urine Ketones Negative Negative Urine Blood Negative Negative /uL Urine Nitrite Negative Negative Urine Bilirubin Negative Negative Urine Urobilinogen 2 H Negative mg/dL Urine Leukocyte Esterase Negative Negative /uL Urine RBC 1 0 - 3 /hpf Urine Microscopic WBC 4 H 0-3 /HPF Urine Squamous Epithelial Cells Few <5 /hpf Urine Bacteria None seen None Seen /hpf Urine Hyaline Casts Few 0 - 2 /lpf Urine Mucus Few None Seen Urine Glucose Normal Normal mg/dL Assessment Assessment/plan # EVELYN on CKD, hemodynamically mediated, due to intractable vomiting, ?pancreatitis -Improving Input output last 24 hours 1350/600 Net + 750 ml Renal ultrasound : The right kidney measures 12.2 cm. The left kidney measures 11.7 cm. There is no hydronephrosis or nephrolithiasis. There is no evidence of focal renal mass or cyst. # Intractable nausea and vomiting # ?Pancreatitis, Ozempic use # diabetes mellitus type 2 # hypertension # hyperlipidemia Plan/Recommendation Plan Monitor kidney function and electrolytes Strict input output Renal diet Urine studies ordered including urine creatinine, protein to creatinine ratio, urine sodium, awaiting full results IV fluids, continue at 75 cc/hour (previously was on 120 cc/hr) Patient advised to discontinue Ozempic on discharge Outpatient follow up in Nephrology for further workup and management of CKD Patient is cleared from Nephrology standpoint of view to be discharged Case discussion with Dr Lu. Addendum Patient seen and examined, plan discussed with resident. Agree with above, we will follow closely Plan discussed with: Patient, Other TATO WHELAN RESIDENT Apr 22, 2025 16:29 RICARDO LU MD Apr 22, 2025 18:36
[2025-04-23 01:00] VITALS: BP 139/90; PULSE 76; RESP 20; TEMP 97.6; O2SAT 97
[2025-04-23 05:00] VITALS: BP 135/93; PULSE 69; RESP 20; TEMP 98.5; O2SAT 95
[2025-04-23 08:00] VITALS: PULSE 63; PULSE 67; RESP 16; O2SAT 95
[2025-04-23 09:00] VITALS: BP 142/100; PULSE 67; RESP 16; TEMP 98; O2SAT 95
[2025-04-23] MEDS: LACTULOSE 20Gm/30ML SOLN PO SCH (10:00)
[2025-04-23] MEDS ORDERED: GLIP10TA9 PO (11:26)
--- NOTE | 2025-04-23 11:26 | DVHDS2 ---
Discharge Summary Date of Admission Apr 19, 2025 at 21:50 Date of Discharge: Apr 23, 2025 Admitting Diagnosis pancreatitis Labs/Diagnostic Data: Laboratory Results Test 04/23/25 05:42 04/22/25 10:55 04/22/25 04:45 04/20/25 16:30 Lipase 96 U/L (12-53) Urine Creatinine 60.62 mg/dL (30.0-125.0) Urine Protein/Creatinine Ratio 1.32 Urine Sodium 88 mmol/L (40-220) Urine Total Protein 79.8 mg/dL (1-14) White Blood Count 8.3 10^3/uL (4.4-10.8) Red Blood Count 4.96 10^6/uL (4.5-5.90) Hemoglobin 15.5 g/dL (13.5-17.5) Hematocrit 45.4 % (41.0-53.0) Mean Corpuscular Volume 91.4 fL (80.0-100.0) Mean Corpuscular Hemoglobin 31.2 pg (28.0-32.0) Mean Corpuscular Hemoglobin Concent 34.2 g/dL (32.0-36.0) Red Cell Distribution Width 14.1 % (11.8-14.3) Platelet Count 193 10^3/uL (140-450) Mean Platelet Volume 9.2 fL (6.9-10.8) Neutrophils (%) (Auto) 52.8 % (37.0-80.0) Lymphocytes (%) (Auto) 36.9 % (10.0-50.0) Monocytes (%) (Auto) 7.8 % (0.0-12.0) Eosinophils (%) (Auto) 2.3 % (0.0-7.0) Basophils (%) (Auto) 0.2 % (0.0-2.0) Neutrophils # (Auto) 4.4 10 ^3/uL (1.6-8.6) Lymphocytes # (Auto) 3.1 10 ^3/uL (0.4-5.4) Monocytes # (Auto) 0.6 10 ^3/uL (0-1.3) Eosinophils # (Auto) 0.2 10 ^3/uL (0-0.8) Basophils # (Auto) 0 10 ^3/uL (0-0.2) Nucleated Red Blood Cells 0.2 % Sodium Level 135 mmol/L (136-145) Potassium Level 4.3 mmol/L (3.5-5.1) Chloride Level 102 mmol/L (98-107) Carbon Dioxide Level 24 mmol/L (20-31) Anion Gap 9 (5-15) Blood Urea Nitrogen 24 mg/dL (9-23) Creatinine 1.98 mg/dL (0.700-1.30) Glomerular Filtration Rate Calc 38 mL/min (>90) BUN/Creatinine Ratio 12.1 (10.0-20.0) Serum Glucose 80 mg/dL (74-106) Calcium Level 9.2 mg/dL (8.7-10.4) Total Bilirubin 0.7 mg/dL (0.2-1.0) Aspartate Amino Transferase (AST) 73 U/L (13-40) Alanine Aminotransferase (ALT) 85 U/L (7-40) Alkaline Phosphatase 67 U/L (46-116) B-Type Natriuretic Peptide 30.66 pg/mL (0-100) Total Protein 8.3 g/dL (5.7-8.2) Albumin 4.2 g/dL (3.2-4.8) Troponin I High Sensitivity 10 ng/L (</=54) Test 04/20/25 13:30 04/20/25 06:26 04/19/25 06:16 Plasma/Serum Blood Alcohol 4.8 mg/dL (<10) POC Glucose 83 mg/dl (70-106) Urine Color Yellow (Yellow) Urine Clarity Clear (Clear) Urine pH 5.5 (5.0-9.0) Urine Specific [place] 1.020 (1.001-1.035) Urine Protein 1+ (Negative) Urine Ketones Negative (Negative) Urine Blood Negative /uL (Negative) Urine Nitrite Negative (Negative) Urine Bilirubin Negative (Negative) Urine Urobilinogen 2 mg/dL (Negative) Urine Leukocyte Esterase Negative /uL (Negative) Urine RBC 1 /hpf (0 - 3) Urine Microscopic WBC 4 /HPF (0-3) Urine Squamous Epithelial Cells Few /hpf (<5) Urine Bacteria None seen /hpf (None Seen) Urine Hyaline Casts Few /lpf (0 - 2) Urine Mucus Few (None Seen) Urine Glucose Normal mg/dL (Normal) Other Laboratory Tests 04/22/25 04:45 Brief Hx & Hospital Course: During the hospital stay, Mr. Dyson was diagnosed with pancreatitis and acute kidney injury (EVELYN) superimposed on his existing chronic kidney disease. He received IV fluids and was evaluated by both gastroenterology and nephrology specialists. The patient's renal function improved during the course of treatment. Mr. Dyson's diabetes management has been adjusted due to the recent complications. He was advised to discontinue metformin and Ozempic due to the pancreatitis. Instead, he has been prescribed glipizide 10mg twice daily for glycemic control. The patient was eventually able to tolerate a cardiac diet and was cleared for discharge by the gastroenterology team. He has been instructed to follow up with nephrology and his primary care physician for further evaluation of his diabetic medication regimen. Thomas Dyson, a patient with type 2 diabetes and chronic kidney disease, was admitted for intractable nausea and vomiting, and was found to have pancreatitis and acute kidney injury. Intractable Nausea and Vomiting Assessment: Patient was admitted for intractable nausea and vomiting, likely caused by Ozempic (semaglutide) used for type 2 diabetes management. This adverse effect led to the development of pancreatitis, necessitating hospitalization and intervention. Plan: - Discontinue Ozempic due to pancreatitis - Patient cleared by Gastroenterology for discharge - Patient tolerating cardiac diet Pancreatitis Assessment: Patient developed pancreatitis, likely secondary to Ozempic use. Gastroenterology was consulted and has cleared the patient for discharge, indicating resolution or significant improvement of the condition. Plan: - Administered IV fluids during hospitalization - Gastroenterology consultation completed - Discontinue Ozempic Acute Kidney Injury (EVELYN) superimposed on Chronic Kidney Disease Stage 3B (CKD3B) Assessment: Patient experienced an acute kidney injury superimposed on pre- existing chronic kidney disease stage 3B. Nephrology was consulted, and renal function has shown improvement during the hospital stay. Plan: - Nephrology consultation completed - Follow up with nephrology as outpatient Type 2 Diabetes Mellitus Assessment: Patient has type 2 diabetes, previously managed with metformin and Ozempic. Due to recent pancreatitis and EVELYN, medication regimen requires adjustment. Plan: - Discontinue metformin - Discontinue Ozempic due to pancreatitis - Start glipizide 10 mg PO BID - Follow up with PCP to evaluate diabetic medication Condition at Discharge: Fair Final Diagnosis/Problems List Intractable Nausea and Vomiting Assessment: Patient was admitted for intractable nausea and vomiting. IV fluids were administered. GI was consulted. The patient's diet was advanced as tolerated, and they are currently tolerating a cardiac diet. The patient denies any pain. The abdominal pain and pancreatitis are likely related to a synthetic agent used for diabetes management (ozempic). Plan: - Continue to advance diet as tolerated - Monitor for signs of pancreatitis - Await clearance from GI for discharge Hyperlipidemia Assessment: Patient has a history of hyperlipidemia and was previously on a statin medication. Plan: - Resume statin therapy Benign Essential Hypertension Assessment: Patient has a history of benign essential hypertension and is currently on blood pressure medication. Plan: - Continue current blood pressure medication Chronic Kidney Disease Stage 3B Assessment: Patient has chronic kidney disease stage 3B. A nephrology consult was obtained. The patient complained of left shoulder pain on the . Plan: - Follow up on nephrology consult recommendations Type 2 diabetes Discharge Disposition: Home Discharge Instruct/Medications Diet: Consistent carbohydrate Activity: No Restrictions, As Tolerated Follow Up/Referral: pcp within 1 week Medications: stop metformin due to ckd stop ozempic due to pancreatitis start glipizide 10 mg bid Scheduled Aspirin (Aspirin Low Dose), 1 TAB PO DAILY, (Reported) Atorvastatin Calcium (Atorvastatin Calcium), 1 TAB PO DAILY, (Reported) Clopidogrel Bisulfate (Clopidogrel), 1 TAB PO DAILY, (Reported) Furosemide (Furosemide), 1 TAB PO DAILY, (Reported) Glipizide (Glipizide), 1 TAB PO BID Insulin Glargine (Basaglar Kwikpen), 21 UNITS SC QPM, (Reported) Losartan Potassium (Losartan Potassium), 50 MG PO DAILY, (Reported) Tamsulosin Hcl (Tamsulosin Hcl), 1 PO DAILY, (Reported) Miscellaneous Medications Insulin Aspart (Novolog), 100 UNIT IJ, (Reported) Discontinued Medications Metformin Hydrochloride (Metformin Hcl), 500 MG PO IBID, (Reported) Discharge Statement: "Patient was advised to return to the ER or call 911 if any headaches, dizziness, shortness of breath, chest pain, abdominal pain, bleeding, fevers, or worsening of medical condition. Patient was counseled about treatment plan, medications, possible side effects, patientverbalized understanding. All questions were answered to the best of my ability. This discharge took greater then 30 minutes in planning, reviewing documentation, counseling the patient, and discussing with other team members." ASSESSMENT ASSESSMENT Assessment Intractable Nausea and Vomiting Assessment: Patient was admitted for intractable nausea and vomiting. IV fluids were administered. GI was consulted. The patient's diet was advanced as tolerated, and they are currently tolerating a cardiac diet. The patient denies any pain. The abdominal pain and pancreatitis are likely related to a synthetic agent used for diabetes management (ozempic). Plan: - Continue to advance diet as tolerated - Monitor for signs of pancreatitis - Await clearance from GI for discharge Hyperlipidemia Assessment: Patient has a history of hyperlipidemia and was previously on a statin medication. Plan: - Resume statin therapy Benign Essential Hypertension Assessment: Patient has a history of benign essential hypertension and is currently on blood pressure medication. Plan: - Continue current blood pressure medication Chronic Kidney Disease Stage 3B Assessment: Patient has chronic kidney disease stage 3B. A nephrology consult was obtained. The patient complained of left shoulder pain on the . Plan: - Follow up on nephrology consult recommendations Type 2 diabetes ALINA PRIEST Apr 23, 2025 11:26
[2025-04-23 13:04] VITALS: BP 153/101; PULSE 67; RESP 16; TEMP 97.8; O2SAT 94
[2025-04-23 13:15] VITALS: BP 153/101; PULSE 67; RESP 16; TEMP 97.8; O2SAT 94
--- NOTE | 2025-04-23 23:57 | DVHPN2 ---
Progress Note - Dictate Date Seen: Apr 23, 2025 (Late entry patient seen at 10:00 a.m.) Medical Necessity Reason Pt with a Central, PICC or Fol: No Subjective No new complaints, patient was fussing about his food Patient also wanted to be discharged home No nausea vomiting or abdominal pain Lipase level did trend up to 96 vital signs Vital Sign Date Time Temp Pulse Resp B/P (MAP) Pulse Ox O2 Delivery O2 Flow Rate FiO2 04/23/25 13:15 97.8 67 16 153/101 (118) 94 97.8 04/23/25 08:00 Room Air* 0 21 Total Intake and Output 04/22/25 04/22/25 04/23/25 15:00 23:00 07:00 Intake Total 460 ml 675 ml Balance 460 ml 675 ml objective General Appearance: Alert, Oriented X3, Cooperative, No acute distress, Lungs: Clear to auscultation, Normal air movement, Other Cardiovascular: Regular rate, Normal S1, Normal S2, No murmurs, Gallops, Rubs, Other Abdomen: Normal bowel sounds, Soft, No tenderness, No hepatospenomegaly, No masses, Other laboratory and microbiology Laboratory Tests 04/22/25 04:45 Test 04/22/25 04:45 Range/Units Serum Glucose 80 74-106 mg/dL Problems(with codes): (1) Acute pancreatitis (2) Intractable abdominal pain Prognosis PLAN Discontinue Ozempic due to pancreatitis Maintain on a full liquid diet for 48-72 hours Patient denies drinking alcohol or smoking He will follow up with his PCP in one week to repeat his lipase levels and discuss further management of Ozempic Continue supportive care and discharge planning as per hospitalist Dietary Evaluation Review Comments: Full Liquid diet Advance to cardiac diet texture as tolerated when medically feasible Reassess in 3-5 days Expected Outcomes/Goals: Avoid fast wt loss Plan discussed with: Patient, Other (Nurse) RENAE SOLIS MD Apr 23, 2025 23:57
== END 2025-04-23 14:15 | disposition home or self-care (01) | DRG 282 ==
LOC: EDBD 17:24 → ER 17:24 → OVERFLOW 21:50 → TELE-CENTR 04-20 03:04
PROVIDERS: ADMIT Internal Medicine; ATTEND Internal Medicine
DX: K85.30 Drug induced acute pancreatitis without necrosis or infection (principal); N17.0 Acute kidney failure with tubular necrosis; E11.22 Type 2 diabetes mellitus with diabetic chronic kidney disease; I13.0 Hypertensive heart and chronic kidney disease with heart failure and stage 1 through stage 4 chronic kidney disease, or unspecified chronic kidney disease; I50.32 Chronic diastolic (congestive) heart failure; R16.0 Hepatomegaly, not elsewhere classified; E78.5 Hyperlipidemia, unspecified; E66.9 Obesity, unspecified; N18.32 Chronic kidney disease, stage 3b; Z86.73 Personal history of transient ischemic attack (TIA), and cerebral infarction without residual deficits; Z82.49 Family history of ischemic heart disease and other diseases of the circulatory system; Z82.3 Family history of stroke; Z68.31 Body mass index [BMI] 31.0-31.9, adult; Z79.4 Long term (current) use of insulin; Z79.84 Long term (current) use of oral hypoglycemic drugs; Z87.891 Personal history of nicotine dependence; Z91.199 Patient's noncompliance with other medical treatment and regimen due to unspecified reason; T50.995A Adverse effect of other drugs, medicaments and biological substances, initial encounter; Y92.89 Other specified places as the place of occurrence of the external cause
CPT/HCPCS: 36415; 71045; 73030; 76700; 80048; 80053; 80320; 81001; 82570; 82962; 83690; 83880; 84156; 84300; 84484; 85025; 93005; 93306; 96361; 96374; 96375; G0378; J2470